=== PATIENT | female | born 1985 | race African-American/Black ===

== ENCOUNTER 2017-08-28 05:44 | Day surgery (SDC) | payer MEDICAID, SELFPAY ==
[2017-08-28 06:08] VITALS: BP 118/84; PULSE 78; RESP 18; TEMP 36.6; O2SAT 96; BMI 39.6
[2017-08-28 06:28] LABS: Internal QC Validated? YES +Cl - CLEAR BKGD; Pregnancy, Urine Negative Negative
--- NOTE | 2017-08-28 07:11 | PCM.OPRPT ---
Problem List (1) Gastro-esophageal reflux disease without esophagitis Status: Acute Report of Operation Date of Procedure: 08/28/17 Pre-Operative Diagnosis: k21.9 gastroesophageal reflux disease without esophagitis Post-Operative Diagnosis: Same Surgery/Procedure Performed:: Esophagogastroduodenoscopy with placement of 48 hour pH probe Type of Anesthesia:: MAC Anesthesiologist: Rex Copeland Description of Procedure: Patient was brought into the endoscopy suite. Back of her throat was sprayed with Cetacaine spray. A bite-block was placed. She was placed on the left lateral decubitus position. She was given graded anesthesia. The scope was inserted into the back of the oropharynx and directed down through the esophagus into the stomach and into the duodenum without difficulty. Operative findings: #1 duodenum: Normal appearance no mass lesions no ulcerations #2 stomach: Normal appearance no mass lesions no ulcerations. 3. Esophagus: Normal appearance no mass lesions no signs of esophagitis Z line was at 39 cm and was normal in appearance. The scope was withdrawn. PH probe was marked at 33 cm. The probe was then placed in the back of the oropharynx and directed down to the 33 cm julian. Suction was applied to the pH probe. It was deployed appropriately. The scope was reinserted in the back of the oropharynx and directed down through the esophagus. PH probe was identified and photograph was obtained. The scope was withdrawn and the patient tolerated the procedure well. - Admit VTE Documentation VTE Present on Admission: No VTE Mechan Device Prophylaxis: None VTE Pharm Prophylaxis ordered?: No Reason prophylaxis not ordered:: Treatment Not Indicated
[2017-08-28 07:15] VITALS: BP 105/58; BP 118/84; PULSE 71; RESP 18; TEMP 36.6; O2SAT 96
[2017-08-28 07:20] VITALS: BP 113/61; BP 118/84; PULSE 69; RESP 16; O2SAT 96
[2017-08-28 07:25] VITALS: BP 106/54; BP 118/84; PULSE 70; RESP 18; O2SAT 96
[2017-08-28 07:31] VITALS: BP 109/70; BP 118/84; PULSE 67; RESP 18; TEMP 36.8; O2SAT 96
[2017-08-28 08:07] VITALS: BP 118/84
== END 2017-08-28 08:10 | disposition home or self-care (01) ==
LOC: EN 05:47 → AC 05:48
PROVIDERS: Anesthesiology; Family Provider Internal Medicine; PCP Internal Medicine; Visit Provider Surgery
PROC: (CPT 43235; principal; 2017-08-28 06:30)
DX: K21.9 Gastro-esophageal reflux disease without esophagitis (principal); J45.909 Unspecified asthma, uncomplicated; G43.909 Migraine, unspecified, not intractable, without status migrainosus; K44.9 Diaphragmatic hernia without obstruction or gangrene; F32.9 Major depressive disorder, single episode, unspecified; F41.9 Anxiety disorder, unspecified; E66.9 Obesity, unspecified; Z68.39 Body mass index [BMI] 39.0-39.9, adult; Z79.51 Long term (current) use of inhaled steroids; Z79.899 Other long term (current) drug therapy
CPT/HCPCS: 43235; 91035; 81025; J7120

== ENCOUNTER 2017-09-12 12:33 | Emergency (ER) | payer MEDICAID, SELFPAY ==
[2017-09-12 12:34] VITALS: BP 125/71; PULSE 67; PULSE 69; RESP 15; RESP 18; TEMP 36.5; O2SAT 98; BMI 39.2
--- NOTE | 2017-09-12 12:58 | US_ITS ---
STUDY: ABDOMINAL ULTRASOUND - RIGHT UPPER QUADRANT REASON FOR VISIT: Female, 32 years old. Right upper quadrant pain. TECHNIQUE: Ultrasound evaluation of the right upper quadrant was performed with real-time and static cole-scale imaging. TECHNICAL QUALITY: Adequate. COMPARISON: None. FINDINGS: Liver: The liver measures 13.8 cm. There is increased echogenicity consistent with fatty infiltration. The bile ducts are within normal limits. There is hepatic color flow. The direction of portal flow is hepatopetal. There is no demonstrated mass lesion. Gallbladder: Normal distended gallbladder. The gallbladder wall measures 2.0 mm. There is a negative sonographic Keyes's sign. There is no pericholecystic fluid. There are no gallstones. Common Bile Duct (C.B.D.): The common bile duct measures 1.5-2.2 mm. Pancreas: Normal size of the head, body and tail of the pancreas. There is normal echogenicity of the pancreas. There is no demonstrated pancreatic mass or cyst. Right Kidney: Normal size of the right kidney. The right kidney measures 2.7 x 5.7 x 5.6 cm. There is a 5.4 mm maximum dimension echogenic focus without shadowing within the superficial lower pole cortex. The right cortex measures 2.0 cm. There is no demonstrated renal mass or cyst. There is no right hydronephrosis. US/Gallbladder IMPRESSION: Diffuse increased hepatic echogenicity without visualized mass or cyst. This is a nonspecific finding, however most often due to fatty infiltration. Unremarkable gallbladder and bile ducts and pancreas. Right renal nephrolithiasis versus nephrocalcinosis versus vascular calcification. Electronically Signed: Kian Aguirre MD at 14:09 EDT , Service support ,
[2017-09-12 13:12] LABS: Mucous, Urine 0 SEEN /hpf (<or=2+); Red Blood Cells-Urine 0 SEEN /hpf (0-5)
[2017-09-12 13:16] LABS: Color, Urine Yellow (Yellow); Glucose, Dipstick Normal (Normal); Ketone-Dipstick Negative (Negative); Leukocyte Esterase-Dipstick 25 /ul (Negative); Nitrite-Dipstick Negative (Negative); Occult Blood-Urine Negative /ul (Negative); Protein-Dipstick Negative (Negative); Specific Gravity, Urine 1.015 (1.002-1.030); Urine Bilirubin Dipstick Negative (Negative); Urine Clarity Sl. Cloudy (Clear); Urine Urobilinogen Normal (Normal); Urine pH 6.5 (5.0 - 8.0)
[2017-09-12] MEDS: Ondansetron 4 MG/2 ML Vial IV (13:26)
[2017-09-12] MEDS: Morphine 4 MG/ML Syringe IV (13:26)
[2017-09-12 13:31] LABS: Bacteria 1+ /hpf (None Seen); Squamous Epithelial Cells - UA 0-5 SEEN /hpf (5-10); White Blood Cells 0-5 SEEN /hpf (0-5)
[2017-09-12 13:36] LABS: Absolute Lymphocyte Count 1.94 X10^3/ul (0.83-4.51); Absolute Neutrophil Count 3.7 X10^3/uL (2.0-7.7); Basophil# 0.01 X10^3/uL; Basophil% 0.2 % (0-1); Eosinophil# 0.06 X10^3/uL; Hematocrit 44.2 % (37-47); Hemoglobin 14.2 g/dl (12.0-15.0); Lymphocyte # 1.94 X10^3/ul (4.0); Lymphocyte % 31.1 % (19-41); Mean Corp Hgb Conc 32.1 g/gl (32-36); Mean Corpuscular Hgb 28.3 pg (27.0-32.0); Mean Corpuscular Volume 88.2 fL (81-99); Mean Platelet Vol. 9.7 fl (6.2-12.0); Monocyte# 0.46 X10^3/uL; Monocyte% 7.4 % (0-10); Neutrophil # 3.74 X10^3/uL (2.7-7.7); Platelet Count 227 K/mm3 (150-450); RBC Distribution Width CV 13.7 % (11.6-14.6); RBC Distribution Width SD 43.8 fl (35.1-43.9); Red Blood Count 5.01 M/mm3 (4.2-5.4); White Blood Count 6.2 K/mm3 (4.4-11.0)
[2017-09-12 13:49] LABS: POSITIVE COUNT NO; POSITIVE DIFFERENTIAL NO; POSITIVE MORPHOLOGY NO
[2017-09-12 13:56] LABS: AST(SGOT) 13 U/L (15-37); Alanine Aminotransfer ALT/SGPT 16 U/L (13-56); Albumin, Serum 3.7 g/dL (3.2-5.0); Alkaline Phosphatase 103 U/L (45-117); Anion Gap 8 (5-15); BUN 13 mg/dL (7-18); BUN/Creat Ratio 19.9 RATIO (10-20); Chloride 105 mmol/L (98-107); Creatinine, Serum 0.65 mg/dL (0.55-1.02); EST Glomerular Filtration Rate 110 mL/min (>60); Est Glom Filt Rate - Afr Amer 134 mL/min (>60); Estimated Creatinine Clearance 100.88 ml/min; Globulin 4.1 g/dL (2.2-4.2); Glucose 77 mg/dL (74-106); Lipase 128 U/L (73-393); Potassium 4.1 mmol/L (3.5-5.1); Protein, Total 7.8 g/dL (6.4-8.2); Sodium Level 139 mmol/L (136-145)
[2017-09-12 13:57] LABS: Pregnancy, Serum, hCG Quali. NEGATIVE Negative (0-9 Nonpreg)
--- NOTE | 2017-09-12 14:29 | CT_ITS ---
STUDY: CT ABDOMEN AND PELVIS WITHOUT CONTRAST REASON FOR EXAM: Female, 32 years old. Right upper quadrant pain since this morning. RADIATION DOSAGE (If Supplied By Facility): CTDIvol = ( 20.34 ) mGy, DLP = ( 980.79 ) mGycm TECHNIQUE: Transaxial images were obtained from the dome of the diaphragm to the symphysis pubis without oral contrast, and without intravenous contrast. Sagittal and coronal images were reconstructed. Individualized dose optimization techniques were used for this CT. COMPARISON: March 26, 2015. FINDINGS: The visualized lung bases are remarkable only for calcified granulomas within the inferior right middle lobe and left lower lobe. The visualized portions of the heart are within normal limits. There is mild diffuse decreased hepatic attenuation consistent with fatty infiltration. There is no focal/discrete hepatic mass or cyst. Normal gallbladder and extrahepatic biliary system. There are some punctate calcifications throughout the splenic parenchyma consistent with sequela of infection with a prior systemic granulomatous disease. Normal pancreas. Normal bilateral adrenal glands. Normal right kidney. Normal left kidney. Of note, the echogenic finding within the lower pole of the right kidney seen on today's sonography is not demonstrated on this CT exam. Normal visualized stomach. Normal small intestine. Normal colon. The appendix is visualized and appears normal on sequence 2, image 104. Normal abdominal aorta. Normal inferior vena cava. Normal retroperitoneum. Normal urinary bladder. There is fatty only periumbilical hernia. Normal osseous structures. CT/Abdomen/Pelvis without Cont IMPRESSION: Mild hepatic steatosis. Punctate splenic parenchymal calcifications consistent with sequela of infection with a prior systemic granulomatous disease. Lung base small calcified parenchymal granulomas. Calcified pelvic phleboliths. Electronically Signed: Kian Aguirre MD at 15:26 EDT , Service support ,
[2017-09-12 15:17] VITALS: BP 131/75; PULSE 61; RESP 15; O2SAT 98
--- NOTE | 2017-09-12 15:31 | ED.DCSUM_ITS ---
- ER Visit Summary Date of Service: 09/12/17 Chief Complaint: Abdominal pain History of Present Illness: The patient is a 32 F presenting with right upper quadrant abdominal pain. States this started earlier today. She has pain in the mid abdomen and right upper quadrant. She denies nausea or vomiting. She has mild diarrhea. Denies fever. Denies urinary complaints. She states she tried Tylenol at home. She states pain is worsened when she moves. She denies injury. Denies other complaints. Physical Examination: Vitals are stable. Patient is afebrile. Alert no acute distress. HEENT exam is unremarkable. Neck is supple. Lungs are clear and equal bilaterally. Heart is regular rate and rhythm. Abdomen is soft nontender nondistended. Extremities are unremarkable. Skin is warm and dry. No focal neurologic deficit. Remainder of exam is unremarkable. Emergency Department Course and Treatment: Patient is given morphine, Zofran IV. CBC, chemistries unremarkable. Liver lipase are normal. Urinalysis unremarkable. HCG negative. Ultrasound of the gallbladder shows diffuse increased hepatic echogenicity without visualized mass or cyst. This is a nonspecific finding, however most often due to fatty infiltration. Unremarkable gallbladder and bile ducts and pancreas. Right renal nephrolithiasis versus nephrocalcinosis versus vascular calcification. CT abdomen pelvis shows mild hepatic steatosis. Punctate splenic parenchymal calcifications consistent with sequela of infection with a prior systemic granulomatous disease. Lung base small calcified parenchymal granulomas. Calcified pelvic phleboliths. Patient has some improvement of her pain. She was advised gallbladder and CT results. She is advised to follow-up with her primary care physician. She is given a prescription for Bentyl. Advised return to ED for worsening complaints. Disposition: Discharge home Impression: Abdominal pain This note was generated with [employer] dictation software. It may contain incorrect words, spelling, and punctuation that were not noted in review of the chart prior to signing ED Disposition - Plan for ED Patient: Chief Complaint: Abd Pain Referrals: Liz Fenton MD [Primary Care Provider] -
--- NOTE | 2017-09-12 15:42 | ED.DEP ---
ED Disposition - Plan for ED Patient: Chief Complaint: Abd Pain Instructions: ED Abdominal Pain Unkn Cause Prescriptions: Dicyclomine HCl [Bentyl] 20 mg PO TIDAC #20 capsule Referrals: Liz Fenton MD [Primary Care Provider] -
[2017-09-12 15:44] VITALS: BP 129/74; PULSE 62; RESP 15; O2SAT 98
== END 2017-09-12 15:50 | disposition home or self-care (01) ==
PROVIDERS: Emergency Provider Emergency Medicine; Family Provider Internal Medicine; PCP Internal Medicine
DX: R10.11 Right upper quadrant pain (principal)
CPT/HCPCS: 74176; 76705; 80048; 80076; 81001; 83690; 84703; 85025; 96374; 96375; 99283; A4216; J2405

== ENCOUNTER → 2017-10-24 09:42 | Day surgery (SDC) | payer MEDICAID, SELFPAY ==
[2017-10-03 12:09] VITALS: BP 119/70; PULSE 67; RESP 18; TEMP 36.8; O2SAT 97
--- NOTE | 2017-10-03 12:45 | NURSING ---
ATTEMPTED TO PERFORM ESPOPHAGEAL MANOMETRY, UNABLE TO COMPLETE AT THIS TIME. ATTEMPTED TO PASS CATHETER X1 EACH NARE, WITHOUT SUCCESS. PT HAD PROFUSE VOMITING WITH BOTH ATTEMPTS AND ELECTED TO STOP. COMFORT MEASURES GIVEN (COOL WASH CLOTH, CLEAN CLOTHING, TIME TO REST, ETC.) DR. MITCHELL'S OFFICE NOTIFIED. MANOMETRY CLINICAL REP CALLED WITHOUT ANSWER. PT DISCHARGED HOME.
--- NOTE | 2017-10-24 09:42 | DT_ITS ---
This patient was seen during an EMR downtime October 23, 2017 - October 30, 2017. This patient may have a combination of paper and electronic documentation or all paper documentation. All documentation is viewable within the e-chart portion of [facility] for each patient visit.
== END ==
PROVIDERS: Family Provider Internal Medicine; PCP Internal Medicine; Visit Provider Surgery
PROC: F00ZJWZ Instrumental Swallowing and Oral Function Assessment using Swallowing Equipment (ICD-10-PCS; CPT 43235; principal; 2017-10-03 11:55)
DX: K21.9 Gastro-esophageal reflux disease without esophagitis (principal)
CPT/HCPCS: 91010

== ENCOUNTER → 2017-12-11 11:56 | Outpatient (CLI) | payer MEDICAID, SELFPAY ==
--- NOTE | 2017-12-11 11:58 | NM_ITS ---
CLINICAL: 32-year-old female with reported history of abdominal pain. SEMI-SOLID PHASE 99m Tc SULFUR COLLOID GASTRIC EMPTYING STUDY COMPARISON: CT of the abdomen-pelvis report 09/12/2017 FINDINGS: The patient was administered 1.0 mCi of 99m Tc sulfur colloid mixed with oatmeal and consumed per os. Image acquisitions in the anterior-posterior projections for a total of 60 minutes. There is prompt visualization of the stomach. There is no gastroesophageal reflux identified. The T1/2 linear fit was calculated to be 29.46 minutes, (Normal: 12-56 minutes). NM/Gastric Emptying Study IMPRESSION: 1. NORMAL 99m Tc sulfur colloid semi-solid phase (oatmeal) gastric emptying imaging examination. A. There is normal and preserved semi-solid phase gastric emptying compared to normal controls. (Marguerite et al, J Nucl Med Tech 38: 186, 2010). Electronically Signed: Rex Mcknight DO at 20:24 EDT Tel , Service support ,
== END ==
PROVIDERS: Family Provider Internal Medicine; PCP Internal Medicine; Visit Provider Surgery
DX: R10.9 Unspecified abdominal pain (principal)
CPT/HCPCS: 78264; A9541

== ENCOUNTER → 2018-03-30 12:42 | Outpatient (CLI) | payer MEDICAID, SELFPAY | PROVIDERS: Family Provider Internal Medicine; PCP Internal Medicine; Visit Provider Surgery | DX: Z53.9 Procedure and treatment not carried out, unspecified reason (principal) ==

== ENCOUNTER 2020-05-27 15:47 | Emergency (ER) | payer MEDICAID, SELFPAY ==
[2020-05-27 15:47] VITALS: BP 124/85; PULSE 102; PULSE 107; RESP 22; TEMP 35.6; O2SAT 96; O2SAT 97; BMI 41.2
--- NOTE | 2020-05-27 16:02 | CT_ITS ---
STUDY: CT ABDOMEN AND PELVIS WITHOUT CONTRAST REASON FOR EXAM: Female, 34 years old. LEFT FLANK/PELVIC PAIN RADIATION DOSAGE (If Supplied By Facility): CTDIvol = ( 17.41 ) mGy, DLP = ( 1009.08 ) mGycm TECHNIQUE: Transaxial images were obtained from the dome of the diaphragm to the symphysis pubis without oral contrast, and without intravenous contrast. Sagittal and coronal images were reconstructed. Individualized dose optimization techniques were used for this CT. COMPARISON: 09/12/2017. FINDINGS: The visualized lung bases are unremarkable. The visualized portions of the heart are within normal limits. Normal liver. Normal gallbladder and extrahepatic biliary system. Normal spleen. Normal pancreas. Normal bilateral adrenal glands. Normal right kidney. Normal left kidney. Normal visualized stomach. Normal small intestine. Normal colon. The appendix is visualized and appears normal. Normal abdominal aorta. Normal inferior vena cava. Normal retroperitoneum. Normal urinary bladder. Normal abdominal wall. Normal osseous structures. No significant change since prior exam CT/Abdomen/Pelvis without Cont IMPRESSION: Normal unenhanced CT of the abdomen and pelvis. Electronically Signed: Rudy Roegrs MD at 18:42 EST , Service support ,
--- NOTE | 2020-05-27 16:04 | ED.DCSUM_ITS ---
History of Present Illness Chief Complaint: Back Informant: Patient - Abdominal Pain/Flank Pain Onset: Hours - 1.5 Context: Sudden Onset Timing: Continuous Quality: Aching - colicky Location: Left Flank Current Severity: Severe Maximum Severity: Severe Worsened by: Nothing Relieved by: Nothing - Nausea/Vomiting/Emesis GI Symptom: Negative for: Nausea, Vomiting - Diarrhea/Melena/Hematochezia GI Symptom: Diarrhea. Negative for: Melena, Hematochezia Onset: Today Stool Quality: Loose Episodes: 1 Associated Symptoms: Negative for: Dysuria, Frequency, Hematuria, Urgency - Past Medical History (1) Anxiety Status: Chronic (2) Asthma Status: Chronic (3) Carpal tunnel syndrome Status: Chronic (4) GERD (gastroesophageal reflux disease) Status: Chronic (5) Migraine Status: Chronic (6) Depression Status: Chronic Past Medical History - Allergies and Home Meds Allergies/Adverse Reactions: Allergies No Known Allergies Allergy (Verified 03/30/18 10:36) Primary Care Physician: Liz Fenton MD [Primary Care Provider] - Smoking Status: Never smoker - Family History Maternal Family History: Family History (Last Reviewed 03/30/18 @ 10:19 by Ella Blackmon) Mother Asthma Diabetes Father Cancer Brother Hypertension Family History: Reports: - - Fibromyalgia Review of Systems General: Denies: Chills, Fever, Sweats Eyes: Denies: Visual changes - bilaterally, Diplopia ENT: Denies: Rhinorrhea, Sore throat Cardiovascular: Denies: Chest pain, Palpitations Respiratory: Denies: Dyspnea, Cough, Dyspnea on exertion Gastrointestinal: Reports: Abdominal pain. Denies: Nausea, Vomiting, Diarrhea, Melena, Hematochezia Genitourinary: Denies: Dysuria, Hematuria, Frequency Musculoskeletal: Reports: Back pain. Denies: Swelling, Extremity Pain Skin: Denies: Rash, Wounds Neurological: Denies: Headache, Weakness, Numbness Physical Exam Vital Signs/Narrative: Vital Signs Temp Pulse Resp BP Pulse Ox 05/27/20 15:47 96.0 F L 107 H 22 H 124/85 H 97 Inital Vital Signs reviewed: Yes General: Well nourished, Well developed, Obese, Acute Distress - painful Head: Normocephalic, Atraumatic Eyes: Perrl, EOMI ENT: Moist mucous membranes, No rhinorrhea Neck: Supple, Nontender Cardiovascular: Regular rate, Regular rhythm, No murmurs Respiratory: No distress, CTA bilaterally, Chest nontender Abdomen: Soft, Nondistended, Normal bowel sounds, Tender. Negative for: Guarding, Rebound tenderness, Pulsatile mass Back: Nontender, Normal Inspection. Negative for: CVA tenderness Extremities: Nontender, No edema Skin: Normal color, No rash, No Trauma Neurological: Alert, Oriented x3, Cranial nerves II-XII grossly intact, Normal Strength, Normal Sensation Psychological: Normal affect, Normal Mood Diagnostic/Tx/Re-eval Impressions Abdomen/Pelvis CT 05/27/20 16:02 IMPRESSION: Normal unenhanced CT of the abdomen and pelvis. Electronically Signed: Rudy Rogers MD at 18:42 EST , Service support , Transvaginal US 05/27/20 17:55 IMPRESSION: Small cyst in the left ovary with mild fluid in the cul-de-sac likely due to recent ovulation Electronically Signed: Rudy Rogers MD at 20:24 EST , Service support , 05/27/20 16:02 Abdomen/Pelvis without Cont [CT] Stat 05/27/20 17:55 Transvaginal Non- [US] Stat Laboratory Results 05/27/20 05/27/20 05/27/20 16:15 16:15 16:15 WBC 6.7 RBC 5.12 Hgb 14.3 Hct 44.5 MCV 86.9 MCH 27.9 MCHC 32.1 RDW Std Deviation 42.2 RDW Coeff of Juanita 13.3 Plt Count 231 MPV 9.8 Immature Gran % (Auto) 0.300 Neut % (Auto) 61.7 Lymph % (Auto) 28.7 [place] % (Auto) 8.1 Eos % (Auto) 0.9 Baso % (Auto) 0.3 Absolute Neuts (auto) 4.1 Absolute Lymphs (auto) 1.91 Nucleated RBC % 0 Sodium 138 Potassium 4.0 Chloride 108 H Carbon Dioxide 25.0 Anion Gap 5 BUN 10 Creatinine 0.84 Estim Creat Clear Calc 76.59 Est GFR (MDRD) Af Amer 99 Est GFR (MDRD) Non-Af 82 BUN/Creatinine Ratio 11.9 Glucose 102 Calcium 9.0 Serum , Qual NEGATIVE Urine Color Urine Clarity Urine pH Ur Specific [place] Urine Protein Urine Glucose (UA) Urine Ketones Urine Occult Blood Urine Nitrite Urine Bilirubin Urine Urobilinogen Ur Leukocyte Esterase Urine RBC Urine WBC Ur Squamous Epith Cells Urine Bacteria Urine Mucus 05/27/20 17:15 WBC RBC Hgb Hct MCV MCH MCHC RDW Std Deviation RDW Coeff of Juanita Plt Count MPV Immature Gran % (Auto) Neut % (Auto) Lymph % (Auto) [place] % (Auto) Eos % (Auto) Baso % (Auto) Absolute Neuts (auto) Absolute Lymphs (auto) Nucleated RBC % Sodium Potassium Chloride Carbon Dioxide Anion Gap BUN Creatinine Estim Creat Clear Calc Est GFR (MDRD) Af Amer Est GFR (MDRD) Non-Af BUN/Creatinine Ratio Glucose Calcium Serum , Qual Urine Color Yellow Urine Clarity Sl. Cloudy Urine pH 6.0 Ur Specific [place] 1.025 Urine Protein Negative Urine Glucose (UA) Normal Urine Ketones Negative Urine Occult Blood Negative Urine Nitrite Negative Urine Bilirubin Negative Urine Urobilinogen 1 H Ur Leukocyte Esterase 500 H Urine RBC 0 SEEN Urine WBC 0-5 SEEN Ur Squamous Epith Cells 10-25 SEEN Urine Bacteria RARE Urine Mucus 0 SEEN - Medical Decision Making Initially the patient presented more like a kidney stone with sudden onset of left flank pain that went high into her left upper flank and back. CT was obtained in addition to labs since her exam was a little atypical, CT is normal and the labs do not show anything concerning, with the exception of her urine showing a confusing and likely contaminated specimen result of leukocyte esterase 500 but without pyuria and rare bacteria, along with 10-25 epithelial cells. This was sent for culture, but since she does not have urinary symptoms, I do not think she needs antibiotics to cover that. Given her ongoing pain which we did help significantly with morphine and Toradol, and the fact that she has a left ovarian cyst that she states her [employer] recently found because she was having heavy irregular menstrual cycles, a transvaginal ultrasound was obtained to ensure she does not have acute torsion. Good blood flow was seen to both ovaries. She does have a cyst on the left that is small, as well as free fluid in the cul-de-sac, differential includes ovulation, ruptured ovarian cyst, endometriosis, and other potential [employer] related causes. At this time I think she is safe to be discharged home. Her was negative so this is not likely an ectopic , and I think prescribing her a short course of pain medicine with close outpatient gynecologic follow-up would be reasonable. ED Disposition - Plan for ED Patient: Disposition: Home or Assisted Living Diagnosis: Acute pain in female pelvis, Left ovarian cyst Instructions: ED Ovarian Cyst Prescriptions: Hydrocodone Bitart/Apap 5-325 [[place] 5MG-325MG] 1 tab PO Q4H PRN PRN 3 Days #14 tab PRN Reason: Pain Prescription Printed Referrals: Liz Fenton MD [Primary Care Provider] - 3-5 Days if not improving (And/or your)
[2020-05-27 16:21] LABS: Absolute Lymphocyte Count 1.91 X10^3/uL (0.83-4.51); Absolute Neutrophil Count 4.1 X10^3/uL (2.0-7.7); Basophil# 0.02 X10^3/uL; Basophil% 0.3 % (0-1); Eosinophil# 0.06 X10^3/uL; Eosinophils% 0.9 % (0-5); Hematocrit 44.5 % (37-47); Hemoglobin 14.3 g/dL (12.0-15.0); Lymphocyte # 1.91 X10^3/ul (4.0); Lymphocyte % 28.7 % (19-41); Mean Corp Hgb Conc 32.1 g/dL (32-36); Mean Corpuscular Hgb 27.9 pg (27.0-32.0); Mean Corpuscular Volume 86.9 fL (81-99); Mean Platelet Vol. 9.8 fl (6.2-12.0); Monocyte# 0.54 X10^3/uL; Monocyte% 8.1 % (0-10); NRBC Flagged by Analyzer 0 % (0-5); Neutrophil % 61.7 % (47-70); Platelet Count 231 K/mm3 (150-450); RBC Distribution Width CV 13.3 % (11.6-14.6); RBC Distribution Width SD 42.2 fl (35.1-43.9); Red Blood Count 5.12 M/mm3 (4.2-5.4); White Blood Count 6.7 K/mm3 (4.4-11.0)
[2020-05-27] MEDS: Ketorolac 30 MG/ML Syringe IV (16:23)
[2020-05-27] MEDS: Morphine 4 MG/ML Syringe IV ×2 (16:23→20:44)
[2020-05-27 16:34] LABS: Anion Gap 5 (5-15); BUN 10 mg/dL (7-18); BUN/Creat Ratio 11.9 RATIO (10-20); Chloride 108 mmol/L (98-107); Creatinine, Serum 0.84 mg/dL (0.55-1.02); EST Glomerular Filtration Rate 82 mL/min (>60); Est Glom Filt Rate - Afr Amer 99 mL/min (>60); Estimated Creatinine Clearance 76.59 ml/min; Glucose 102 mg/dL (74-106); Sodium Level 138 mmol/L (136-145)
[2020-05-27 16:45] LABS: Internal QC Validated? YES +Cl - CLEAR BKGD; Pregnancy, Serum, hCG Quali. NEGATIVE Negative
[2020-05-27 17:29] LABS: Mucous, Urine 0 SEEN /hpf (<or=2+); Red Blood Cells-Urine 0 SEEN /hpf (0-5)
[2020-05-27 17:36] LABS: Color, Urine Yellow (Yellow); Glucose, Dipstick Normal (Normal); Ketone-Dipstick Negative (Negative); Leukocyte Esterase-Dipstick 500 /ul (Negative); Nitrite-Dipstick Negative (Negative); Occult Blood-Urine Negative /ul (Negative); Protein-Dipstick Negative (Negative); Specific Gravity, Urine 1.025 (1.002-1.030); Urine Bilirubin Dipstick Negative (Negative); Urine Clarity Sl. Cloudy (Clear); Urine Urobilinogen 1 mg/dl (Normal)
[2020-05-27 17:42] LABS: Squamous Epithelial Cells - UA 10-25 SEEN /hpf (5-10); White Blood Cells 0-5 SEEN /hpf (0-5)
[2020-05-27 17:43] LABS: Bacteria RARE /hpf (None Seen)
--- NOTE | 2020-05-27 17:55 | US_ITS ---
STUDY: ULTRASOUND TRANSVAGINAL CLINICAL: Female, 34 years old. SEVERE PELVIC PAIN TECHNIQUE: Transvaginal COMPARISON: None. FINDINGS: Normal uterine size measuring 8.2 x 4.4 x 3.7 cm in maximal craniocaudal dimension. There are no myometrial masses. Normal endometrial thickness measuring 12 mm. There are no endometrial masses, and there is no fluid in the endometrial cavity. Normal uterine cervix. Normal right ovary, measuring 2 x 1.8 x 1.7 cm. There are multiple follicles without a dominant cyst. Normal left ovary, measuring 3.7 x 2.3 x 2 cm. There is a cyst measuring 1.9 x 1.5 x 1.4 cm There is mild free fluid in the pelvis. US/Transvaginal Non- IMPRESSION: Small cyst in the left ovary with mild fluid in the cul-de-sac likely due to recent ovulation Electronically Signed: Rudy Rogers MD at 20:24 EST , Service support ,
[2020-05-27 20:46] VITALS: PULSE 69; RESP 16; O2SAT 96
[2020-05-27 20:47] VITALS: BP 122/70
== END 2020-05-27 21:30 | disposition home or self-care (01) ==
PROVIDERS: Emergency Provider Emergency Medicine; PCP Internal Medicine
DX: N83.202 Unspecified ovarian cyst, left side (principal); J45.909 Unspecified asthma, uncomplicated; K21.9 Gastro-esophageal reflux disease without esophagitis; E66.9 Obesity, unspecified
CPT/HCPCS: 74176; 76830; 80048; 81001; 84703; 85025; 87086; 87088; 93976; 96374; 96375; 96376; 99283; J7030; A4216

== ENCOUNTER 2021-05-28 10:30 | Outpatient (CLI) | payer MEDICAID, SELFPAY | END 2021-05-28 23:59 | disposition short-term general hospital (02) | LOC: LABSPEC 10:31 | PROVIDERS: PCP Internal Medicine; Referring Provider Physician Assistant Surgical; Visit Provider Physician Assistant Surgical | DX: U07.1 COVID-19 (principal) | CPT/HCPCS: 87635; U0003 ==

== ENCOUNTER 2021-09-24 14:35 | Emergency (ER) | payer MEDICAID, SELFPAY ==
[2021-09-24 14:36] VITALS: BP 129/100; PULSE 94; RESP 16; TEMP 36.2; O2SAT 96; BMI 40.7
[2021-09-24 14:38] VITALS: BP 129/100; PULSE 94; RESP 16; TEMP 36.2; O2SAT 96
[2021-09-24] MEDS: Ondansetron 4 MG/2 ML Vial IV (15:37)
[2021-09-24] MEDS: Mag Hydrox/Al Hydrox/Simeth 30 ML UDC PO (15:37)
[2021-09-24] MEDS: Dicyclomine 10 MG Capsule 20 MG PO (15:37)
--- NOTE | 2021-09-24 16:02 | EDS_ITS ---
HPI History of Present Illness Chief Complaint: Abd Pain Narrative Narrative: 36-year-old female with history of GERD and chronic abdominal issues presenting with nausea/vomiting, increased acid reflux, abdominal cramping and bloating associated with diarrhea. She states this is ongoing for about a month. She denies any black or bloody stool. She has no constipation. No fever or chills. No recent antibiotics use. She states he spoke with her primary care provider who referred her to a GI doctor who she will see in October. She has had upper endoscopy and lower endoscopy previously. Patient states she has Zofran at home which does help. She states has been drinking a lot of o range juice lately. She also states she had tomato soup yesterday with a grilled cheese. [facility] Medical History Acute bronchitis, unspecified Acute otitis media, left Anxiety Asthma Carpal tunnel syndrome Depression Encounter for screening for COVID-19 GERD (gastroesophageal reflux disease) Lab test negative for COVID-19 virus Migraine Obesity Home Medications sertraline 100 mg PO DAILY 03/26/15 [History Last Taken 09/25/16] budesonide-formoterol 2 puff INHALATION BID 01/20/16 [History Last Taken 09/25/16] sumatriptan succinate 100 mg PO .X1 PRN 09/26/16 [History Last Taken 09/24/16] albuterol sulfate 2 puff IH Q6H PRN PRN 04/03/17 [History Last Taken Unknown] pantoprazole 40 mg tablet,delayed release 40 mg PO QDAY 08/10/17 [History Last Taken 08/22/17] [id number] acid 1 ea PO DAILY 08/22/17 [History Last Taken Unknown] dicyclomine 20 mg PO TIDAC #20 cap 09/12/17 [Rx Last Taken Unknown] bupropion HCl 100 mg tablet,12 hr sustained-release 100 mg PO DAILY 11/26/20 [History Last Taken Unknown] dicyclomine 10 mg PO TID PRN #20 cap 09/24/21 [Rx Last Taken Unknown] promethazine 25 mg PO TID PRN #20 tab 09/24/21 [Rx Last Taken Unknown] promethazine 25 mg ND Q6H PRN #12 ea 09/24/21 [Rx Last Taken Unknown] sucralfate [Carafate] 1 g PO BID PRN #400 ml 09/24/21 [Rx Last Taken Unknown] Allergy/AdvReac Type Severity Reaction Status Date / Time No Known Allergies Allergy Verified 09/24/21 14:38 Family History Mother Asthma Diabetes Father Cancer throat Brother Hypertension Surgical History History of esophagogastroduodenoscopy (EGD) S/P carpal tunnel release S/P colonoscopy Social History Smoking Status: Never smoker ROS ROS ED Constitutional Constitutional ED: Denies chills or fever(s) Eyes Eyes: Denies blurry vision or diplopia ENT ENT ED: Denies rhinorrhea or sore throat Cardiovascular Cardiovascular: Denies chest pain or palpitations Respiratory/Chest Respiratory/Chest: Denies cough or dyspnea Gastrointestinal Gastrointestinal: Reports abdominal pain, diarrhea, nausea and vomiting Genitourinary Genitourinary ED: Denies dysuria or hematuria Musculoskeletal Musculoskeletal: Denies arthralgias or myalgias Integumentary Denies rash Neurologic Neurologic: Denies headache(s) Psychiatric Psychiatric: Denies anxiety or depression EXAM Physical Exam Const Vital Signs: 09/24/21 14:36 09/24/21 14:38 09/24/21 16:52 Temperature 97.1 F L 97.1 F L Temperature Source Temporal Temporal Pulse Rate 94 94 90 Respiratory Rate 16 16 18 Blood Pressure 129/100 H 129/100 H 128/84 H Blood Pressure Mean 109 109 98 Pulse Ox 96 96 96 Oxygen Delivery Method Room Air Room Air Room Air 09/24/21 17:05 Temperature 97.9 F Temperature Source Pulse Rate 63 Respiratory Rate 17 Blood Pressure 130/86 H Blood Pressure Mean Pulse Ox 97 Oxygen Delivery Method Positive well nourished General Appearance ED: NAD; Negative for pallor HEENT Reports moist mucous membranes Negative for trauma Eyes PERRL and EOMs intact bilaterally Resp normal respiratory effort and clear to auscultation bilaterally Cardio regular rate and regular rhythm GI normal to inspection, nondistended, normoactive bowel sounds Back/Spine no CVA tenderness Neuro oriented x3 and CN's II-XII intact bilaterally Sensorium / Orientation: alert and orientation impaired Motor Exam: strength 5/5 throughout Skin no rashes or lesions noted General Skin Exam: Negative for jaundice or pallor MDM MDM MDM Narrative Medical decision making narrative: After initially evaluating the patient I did not think she needed blood work however after getting Zofran and a GI cocktail she vomited. At this point I added on blood work and gave her IV Haldol, Pepcid. She was given Bentyl. On reevaluation she is feeling well. CBC and CMP within normal limits. Lipase negative. Patient will be discharged home with Phenergan, Carafate. She is on Protonix. I will also send her a prescription for Bentyl. Patient will follow up with GI. She can return precautions. Impression: 1. Nausea/vomiting 2. Diarrhea 3. History of GERD Lab Data Attestation: I reviewed the patient's lab results. Labs: Laboratory Results - last 24 hr 09/24/21 09/24/21 15:00 15:00 WBC 6.6 RBC 5.06 Hgb 13.9 Hct 43.9 MCV 86.8 MCH 27.5 MCHC 31.7 L RDW Std Deviation 42.5 RDW Coeff of Juanita 13.5 Plt Count 216 MPV 10.6 Immature Gran % (Auto) 0.500 Neut % (Auto) 58.2 Lymph % (Auto) 30.1 Haywood % (Auto) 9.8 Eos % (Auto) 1.1 Baso % (Auto) 0.3 Absolute Neuts (auto) 3.8 Absolute Lymphs (auto) 1.97 Nucleated RBC % 0 Sodium 139 Potassium 3.7 Chloride 107 Carbon Dioxide 25.0 Anion Gap 7 BUN 9 Creatinine 0.80 Estim Creat Clear Calc 78.87 Est GFR (MDRD) Af Amer 103 Est GFR (MDRD) Non-Af 85 BUN/Creatinine Ratio 11.2 Glucose 93 Calcium 8.6 Total Bilirubin 0.20 AST 13 L ALT 17 Alkaline Phosphatase 86 Total Protein 8.0 Albumin 3.4 Globulin 4.6 H Albumin/Globulin Ratio 0.7 L Lipase 113 Discharge Plan Triage Chief Complaint: Abd Pain ED Provider: Rex Acuna Dx/Rx/DC Orders Instructions: ED Abdominal Pain Unkn Cause Fem, ED Diarrhea, Unknown Cause, ED Vomiting (Adult) Prescriptions: New promethazine 25 mg suppository 25 mg ND Q6H PRN (Reason: nausea and vomiting) Qty: 12 RF: 0 promethazine 25 mg tablet 25 mg PO TID PRN (Reason: nausea and vomiting) Qty: 20 RF: 0 sucralfate [Carafate] 100 mg/mL suspension 1 g PO BID PRN (Reason: gerd) Qty: 400 RF: 0 dicyclomine 10 mg capsule 10 mg PO TID PRN (Reason: abdominal cramping) Qty: 20 RF: 0 No Action pantoprazole [Protonix] 40 mg tablet,delayed release (DR/EC) 40 mg PO QDAY RF: 0 bupropion HCl [Wellbutrin SR] 100 mg tablet sustained-release 12 hr 100 mg PO DAILY RF: 0 sertraline 25 MG tablet 100 mg PO DAILY RF: 0 budesonide-formoterol 1 INHALER inhaler 2 puff INHALATION BID RF: 0 sumatriptan succinate 100 MG tablet 100 mg PO .X1 PRN RF: 0 albuterol sulfate 18 GM HFA aerosol inhaler 2 puff IH Q6H PRN PRN (Reason: Sob &/Or Wheezing) RF: 0 [id number] 1 EACH tablet 1 ea PO DAILY RF: 0 dicyclomine 10 MG capsule 20 mg PO TIDAC Qty: 20 RF: 0 Primary Care Provider: Liz Fenton Referrals: Liz Fenton MD [Primary Care Provider] - Disposition Disposition: Home, Self Care Discharge Date/Time: 09/24/21 17:11
[2021-09-24 16:24] LABS: Absolute Lymphocyte Count 1.97 X10^3/uL (0.83-4.51); Absolute Neutrophil Count 3.8 X10^3/uL (2.0-7.7); Basophil# 0.02 X10^3/uL; Basophil% 0.3 % (0-1); Eosinophil# 0.07 X10^3/uL; Eosinophils% 1.1 % (0-5); Hematocrit 43.9 % (37-47); Hemoglobin 13.9 g/dL (12.0-15.0); Lymphocyte # 1.97 X10^3/ul (0.83-4.51); Lymphocyte % 30.1 % (19-41); Mean Corp Hgb Conc 31.7 g/dL (32-36); Mean Corpuscular Hgb 27.5 pg (27.0-32.0); Mean Corpuscular Volume 86.8 fL (81-99); Mean Platelet Vol. 10.6 fl (6.2-12.0); Monocyte# 0.64 X10^3/uL; Monocyte% 9.8 % (0-10); NRBC Flagged by Analyzer 0 % (0-5); Neutrophil # 3.82 X10^3/uL (2.7-7.7); Neutrophil % 58.2 % (47-70); Platelet Count 216 K/mm3 (150-450); RBC Distribution Width CV 13.5 % (11.6-14.6); RBC Distribution Width SD 42.5 fl (35.1-43.9); Red Blood Count 5.06 M/mm3 (4.2-5.4); White Blood Count 6.6 K/mm3 (4.4-11.0)
[2021-09-24] MEDS: Haloperidol Lactate 5 MG/ML Vial 2 MG IV (16:26)
[2021-09-24 16:42] LABS: ALB/GLOB Ratio 0.7 RATIO (0.9-2.4); AST(SGOT) 13 U/L (15-37); Alanine Aminotransfer ALT/SGPT 17 U/L (13-56); Albumin, Serum 3.4 g/dL (3.2-5.0); Alkaline Phosphatase 86 U/L (45-117); Anion Gap 7 (5-15); BUN 9 mg/dL (7-18); BUN/Creat Ratio 11.2 RATIO (10-20); Calcium,Total 8.6 mg/dL (8.5-10.1); Chloride 107 mmol/L (98-107); EST Glomerular Filtration Rate 85 mL/min (>60); Est Glom Filt Rate - Afr Amer 103 mL/min (>60); Estimated Creatinine Clearance 78.87 ml/min; Globulin 4.6 g/dL (2.2-4.2); Glucose 93 mg/dL (74-106); Lipase 113 U/L (73-393); Potassium 3.7 mmol/L (3.5-5.1); Sodium Level 139 mmol/L (136-145)
[2021-09-24] MEDS: Famotidine 20 MG Tablet PO (16:49)
[2021-09-24 16:52] VITALS: BP 128/84; PULSE 90; RESP 18; O2SAT 96
[2021-09-24 17:05] VITALS: BP 130/86; PULSE 63; RESP 17; TEMP 36.6; O2SAT 97
== END 2021-09-24 17:11 | disposition home or self-care (01) ==
PROVIDERS: Emergency Provider Student in an Organized Health Care Education/Training Program; PCP Internal Medicine; Visit Provider Student in an Organized Health Care Education/Training Program
DX: R10.9 Unspecified abdominal pain (principal); Z68.41 Body mass index [BMI] 40.0-44.9, adult; R11.2 Nausea with vomiting, unspecified; R19.7 Diarrhea, unspecified; K21.9 Gastro-esophageal reflux disease without esophagitis; E66.9 Obesity, unspecified; J45.909 Unspecified asthma, uncomplicated; F41.9 Anxiety disorder, unspecified; F32.A Depression, unspecified; Z79.899 Other long term (current) drug therapy
CPT/HCPCS: 80053; 83690; 85025; 96374; 96375; 99285; A4216; J2405

== ENCOUNTER 2022-05-22 18:32 | Emergency (ER) | payer MEDICAID, SELFPAY ==
[2022-05-22 18:33] VITALS: BP 135/93; PULSE 105; RESP 14; TEMP 36.6; O2SAT 96; BMI 42.4
--- NOTE | 2022-05-22 19:59 | EDS_ITS ---
HPI History of Present Illness Chief Complaint: Headache Informant: patient Onset/Context/Timing Onset: Weeks (2) Context: Gradual Timing: Continuous Quality -Headache: Positive for Sharp Location: Generalized Worsened by: Light Relieved by: Nothing Associated Symptoms/Injury Associated Symptoms: Positive for Nausea, Vomiting and Photophobia; Negative for Fever, Sore Throat, Sinus Pressure, Numbness, Tingling, Preceding Aura, Visual Changes, Blurred Vision or Visual Loss Injury - HOLDEN: Negative for Direct Trauma Narrative Narrative: Patient presents with a headache that has been constant for the past 2 weeks. Patient states the pain is constant. Patient describes her pain as sharp. Patient states her pain is diffuse across her head. Patient states it is worse with light. Patient states nothing makes it better. Patient admits to some nausea and vomiting. Patient denies any visual changes. Patient denies any scotoma or aura. Patient denies any sore throat or sinus pressure. Patient denies any history of migraine headaches. [facility] Medical History Acute bronchitis, unspecified Acute otitis media, left Anxiety Asthma Carpal tunnel syndrome Depression Encounter for screening for COVID-19 GERD (gastroesophageal reflux disease) Lab test negative for COVID-19 virus Migraine Obesity Home Medications sertraline 25 mg tablet 100 mg PO DAILY 03/26/15 [History Last Taken 09/25/16] budesonide-formoterol HFA 160 mcg-4.5 mcg/actuation aerosol inhaler 2 puff inhalation BID 01/20/16 [History Last Taken 09/25/16] sumatriptan succinate 100 mg tablet 100 mg PO .X1 PRN MIGRAINE 09/26/16 [History Last Taken 09/24/16] albuterol sulfate 90 mcg/actuation aerosol inhaler 2 puff IH Q6H PRN PRN Sob &/Or Wheezing 04/03/17 [History Last Taken Unknown] pantoprazole 40 mg tablet,delayed release (Protonix) 40 mg PO QDAY 08/10/17 [History Last Taken 08/22/17] vit 122-ferrous fumarate 27 mg iron-folic acid 800 mcg tablet 1 ea PO DAILY 08/22/17 [History Last Taken Unknown] dicyclomine 10 mg capsule 20 mg PO TIDAC #20 caps 09/12/17 [Rx Last Taken Unknown] bupropion HCl 100 mg tablet,12 hr sustained-release (Wellbutrin SR) 100 mg PO DAILY 11/26/20 [History Last Taken Unknown] dicyclomine 10 mg capsule 10 mg PO TID PRN abdominal cramping #20 caps 09/24/21 [Rx Last Taken Unknown] promethazine 25 mg rectal suppository 25 mg MI Q6H PRN nausea and vomiting #12 ea 09/24/21 [Rx Last Taken Unknown] promethazine 25 mg tablet 25 mg PO TID PRN nausea and vomiting #20 tabs 09/24/21 [Rx Last Taken Unknown] sucralfate 100 mg/mL oral suspension (Carafate) 1 g (10 mL) PO BID PRN gerd #400 mL 09/24/21 [Rx Last Taken Unknown] azithromycin 250 mg tablet See Rx Instructions PO .COMPLEX #6 tabs 04/07/22 [Rx Last Taken Unknown] Allergy/AdvReac Type Severity Reaction Status Date / Time No Known Allergies Allergy Verified 05/22/22 18:33 Family History Mother Asthma Diabetes Father Cancer throat Brother Hypertension Surgical History History of esophagogastroduodenoscopy (EGD) S/P carpal tunnel release S/P colonoscopy Social History Smoking Status: Never smoker ROS ROS ED Constitutional Constitutional ED: Denies chills or fever(s) Eyes Eyes: Denies blurry vision or change in vision ENT ENT ED: Denies rhinorrhea or sore throat Cardiovascular Cardiovascular: Denies chest pain or palpitations Respiratory/Chest Respiratory/Chest: Denies cough or dyspnea Gastrointestinal Gastrointestinal: Denies nausea or vomiting Genitourinary Genitourinary ED: Denies dysuria or hematuria Musculoskeletal Musculoskeletal: Denies back pain or neck pain Integumentary Denies abscess or rash Neurologic Neurologic: Reports headache(s); Denies weakness Allergic/Immunologic Allergic/Immunologic ED: Denies mouth swelling or urticaria EXAM Physical Exam Const Vital Signs: 05/22/22 18:33 05/22/22 20:32 Temperature 98 F Temperature Source Temporal Pulse Rate 105 H Respiratory Rate 14 16 Blood Pressure 135/93 H Blood Pressure Mean 107 Pulse Ox 96 Oxygen Delivery Method Room Air Positive well nourished and well developed General Appearance ED: well developed and NAD HEENT Reports moist mucous membranes atraumatic Neck supple and no JVD Resp normal respiratory effort and clear to auscultation bilaterally Cardio regular rate, regular rhythm and no murmurs GI normal to inspection, nondistended, normoactive bowel sounds and non-tender Palpation: soft Extremity normal to inspection General Extremety ED: Negative for edema or tenderness General Extremity: Negative for edema Neuro oriented x3, CN's II-XII intact bilaterally and no sensory deficits noted Caio Coma Scale: document GCS findings Spontaneous Obeys Commands Oriented 15 Sensorium / Orientation: awake and alert Motor Exam: strength 5/5 throughout Psych mental status grossly normal MDM MDM MDM Narrative Medical decision making narrative: Patient was given IV fluids, Reglan, and Benadryl. CT scan of the brain was obtained. There is no acute intracranial abnormality. This was interpreted by the radiologist and reviewed by myself. Patient is feeling better on reevaluation. Patient was instructed to rest in a dark quiet room. Patient was instructed to take Tylenol or ibuprofen for pain. Patient was instructed to return if worse in any way. Patient was instructed to follow-up with her primary care physician in 5 to 7 days for reevaluation. Patient understood and was agreeable with the plan. All questions were answered. Radiography Diagnostic Testing: Clinical Impression(s) from Imaging Studies Brain CT 05/22/22 20:03 IMPRESSION: No acute intracranial abnormality. Electronically Signed: Jam Noriega MD at 21:08 EST , Discharge Plan Triage Chief Complaint: Headache ED Provider: José Manuel Lee Dx/Rx/DC Orders Clinical Impression: Headache, Migraine, Obesity Instructions: ED Headache Unspecified Prescriptions: No Action pantoprazole [Protonix] 40 mg tablet,delayed release (DR/EC) 40 mg PO QDAY bupropion HCl [Wellbutrin SR] 100 mg tablet sustained-release 12 hr 100 mg PO DAILY azithromycin 250 mg tablet See Rx Instructions PO .COMPLEX Qty: 6 0RF Rx Instructions: take 500 mg today (day 1), then 250 mg for 4 days (days 2-5) PO sertraline 25 MG tablet 100 mg PO DAILY Label Comments: DEPRESSION budesonide-formoterol 1 INHALER inhaler 2 puff INHALATION BID Label Comments: ASTHMA sumatriptan succinate 100 MG tablet 100 mg PO .X1 PRN Label Comments: MIGRAINE albuterol sulfate 18 GM HFA aerosol inhaler 2 puff IH Q6H PRN PRN (Reason: Sob &/Or Wheezing) Label Comments: Inhale 2 Puffs as instructed every 6 hours as needed for Wheezing/Shortness of Breath. [id number] 1 EACH tablet 1 ea PO DAILY dicyclomine 10 MG capsule 20 mg PO TIDAC Qty: 20 0RF promethazine 25 mg suppository 25 mg MI Q6H PRN (Reason: nausea and vomiting) Qty: 12 0RF promethazine 25 mg tablet 25 mg PO TID PRN (Reason: nausea and vomiting) Qty: 20 0RF sucralfate [Carafate] 100 mg/mL suspension 1 g PO BID PRN (Reason: gerd) Qty: 400 0RF dicyclomine 10 mg capsule 10 mg PO TID PRN (Reason: abdominal cramping) Qty: 20 0RF Primary Care Provider: Liz Fenton Referrals: Liz Fenton MD [Primary Care Provider] - 3-5 Days Disposition Disposition: Home, Self Care
--- NOTE | 2022-05-22 20:03 | CT_ITS ---
EXAMINATION : Head CT w/out contrast HISTORY : Pain COMPARISON : None. TECHNIQUE : Multiple contiguous axial images were obtained from the skull base to the vertex without intravenous contrast. A radiation dose optimization technique was used for this scan. FINDINGS : The ventricles and sulci are normal in size. There is no evidence for acute intracranial hemorrhage, mass effect, or midline shift. There is no extra-axial fluid collection. There is normal huerta-white differentiation, without CT evidence of acute ischemia or infarct. The skull base and calvarium are unremarkable. The orbits are unremarkable. The paranasal sinuses are clear. The mastoid air cells are well-aerated. The soft tissues are unremarkable. CT/Brain/Head without Contrast IMPRESSION: No acute intracranial abnormality. Electronically Signed: Jam Noriega MD at 21:08 EST ,
[2022-05-22] MEDS: DiphenhydrAMINE 50 MG/ML Syringe 25 MG IV (20:12)
[2022-05-22] MEDS: Metoclopramide 10 MG/2 ML Vial IV (20:12)
[2022-05-22] MEDS: 0.9% Normal Saline 1,000 ML 999 ML IV (20:12)
[2022-05-22 20:32] VITALS: RESP 16
[2022-05-22 22:00] VITALS: BP 132/84; PULSE 76; RESP 16
[2022-05-22 22:17] VITALS: RESP 18
== END 2022-05-22 22:32 | disposition home or self-care (01) ==
PROVIDERS: Emergency Provider Emergency Medicine; PCP Internal Medicine; Visit Provider Emergency Medicine
DX: G43.909 Migraine, unspecified, not intractable, without status migrainosus (principal); E66.9 Obesity, unspecified
CPT/HCPCS: 70450; 96361; 96374; 96375; 99282; J7030; A4216

== ENCOUNTER 2022-07-18 14:16 | Emergency (ER) | payer MEDICAID, SELFPAY ==
[2022-07-18 14:17] VITALS: BP 128/95; PULSE 90; RESP 18; TEMP 35.5; O2SAT 95
--- NOTE | 2022-07-18 14:46 | ED.RN ---
pt stated she needs to get her child off the bus and she will come back to be seen tomorrow.
== END 2022-07-18 14:40 | disposition left against medical advice (07) ==
LOC: ED 14:48
PROVIDERS: PCP Internal Medicine
DX: Z53.21 Procedure and treatment not carried out due to patient leaving prior to being seen by health care provider (principal)

== ENCOUNTER 2022-07-19 08:49 | Emergency (ER) | payer MEDICAID, SELFPAY ==
[2022-07-19 08:49] VITALS: BP 120/78; PULSE 74; RESP 18; TEMP 35.7; O2SAT 98; BMI 42.6
--- NOTE | 2022-07-19 09:21 | US_ITS ---
STUDY: ABDOMINAL ULTRASOUND - RIGHT UPPER QUADRANT REASON FOR VISIT: Female, 36 years old . Right upper quadrant pain. TECHNIQUE: Ultrasound evaluation of the right upper quadrant was performed with real-time and static cole-scale imaging. TECHNICAL QUALITY: Adequate. COMPARISON: None. FINDINGS: Liver: The liver is mildly enlarged and measures 18.9 cm. There is increased echogenicity consistent with fatty infiltration. Focal fatty sparing is seen adjacent to the gallbladder fossa. The bile ducts are within normal limits. There is hepatic color flow. The direction of portal flow is hepatopetal. There is no demonstrated mass lesion. Gallbladder: Normal distended gallbladder. The gallbladder wall measures 1.6 mm. There is a negative sonographic Keyes''s sign. There is no pericholecystic fluid. There are no gallstones. Common Bile Duct (C.B.D.): The common bile duct measures 3.3 mm. Pancreas: Normal size of the head, body of the pancreas. The tail portion is obscured due to overlying bowel gas. There is normal echogenicity of the pancreas. There is no demonstrated pancreatic mass or cyst. Right Kidney: Normal size of the right kidney. The right kidney measures 12.2 cm x 6.2 cm x 5.8 cm. Normal renal cortex. The right cortex measures 1.7 cm. There is no demonstrated renal mass or cyst. There is no right hydronephrosis. US/Gallbladder IMPRESSION: Fatty infiltration of the liver. Focal fatty sparing is seen adjacent to the gallbladder fossa. Electronically Signed: Kemal Gutierrez MD at 11:14 EST ,
[2022-07-19 09:44] LABS: Absolute Neutrophil Count 3.2 X10^3/uL (2.0-7.7); Basophil# 0.02 X10^3/uL; Basophil% 0.4 % (0-1); Eosinophil# 0.04 X10^3/uL; Eosinophils% 0.8 % (0-5); Hematocrit 42.7 % (37-47); Lymphocyte % 27.7 % (19-41); Mean Corp Hgb Conc 30.4 g/dL (32-36); Mean Corpuscular Hgb 26.3 pg (27.0-32.0); Mean Corpuscular Volume 86.3 fL (81-99); Mean Platelet Vol. 10.4 fl (6.2-12.0); Monocyte# 0.36 X10^3/uL; Monocyte% 7.1 % (0-10); NRBC Flagged by Analyzer 0 % (0-5); Neutrophil # 3.22 X10^3/uL (2.7-7.7); Neutrophil % 63.6 % (47-70); Platelet Count 198 K/mm3 (150-450); RBC Distribution Width CV 13.7 % (11.6-14.6); Red Blood Count 4.95 M/mm3 (4.2-5.4); White Blood Count 5.1 K/mm3 (4.4-11.0)
[2022-07-19 09:58] LABS: Internal QC Validated? YES +Cl - CLEAR BKGD; Pregnancy, Serum, hCG Quali. NEGATIVE Negative
[2022-07-19] MEDS: Morphine 4 MG/ML Syringe IV (10:00)
[2022-07-19] MEDS: Ondansetron 4 MG/2 ML Vial IV (10:00)
[2022-07-19] MEDS: 0.9% Normal Saline 1,000 ML 1000 ML IV (10:00)
[2022-07-19 10:04] LABS: ALB/GLOB Ratio 0.8 RATIO (0.9-2.4); AST(SGOT) 15 U/L (15-37); Alanine Aminotransfer ALT/SGPT 16 U/L (13-56); Albumin, Serum 3.3 g/dL (3.2-5.0); Alkaline Phosphatase 73 U/L (45-117); Anion Gap 6 (5-15); BUN 6 mg/dL (7-18); Calcium,Total 8.6 mg/dL (8.5-10.1); Chloride 107 mmol/L (98-107); Creatinine, Serum 0.75 mg/dL (0.55-1.02); EST Glomerular Filtration Rate 91 mL/min (>60); Est Glom Filt Rate - Afr Amer 110 mL/min (>60); Estimated Creatinine Clearance 84.13 ml/min; Globulin 3.9 g/dL (2.2-4.2); Glucose 98 mg/dL (74-106); Lipase 85 U/L (73-393); Potassium 3.9 mmol/L (3.5-5.1); Protein, Total 7.2 g/dL (6.4-8.2); Sodium Level 139 mmol/L (136-145)
--- NOTE | 2022-07-19 10:04 | EDS_ITS ---
HPI HPI - GI History of Present Illness Chief Complaint: Abd Pain Informant: patient Abdominal Pain/Flank Pain Onset: Days (3-4) Context: Gradual Onset Timing: Intermittent Quality: Sharp Location: RUQ Worsened by: - (Bending) Relieved by: Nothing Nausea/Vomiting/Emesis GI Symptom: Positive for Nausea; Negative for Vomiting Diarrhea/Melena/Hematochezia GI Symptom: Positive for Diarrhea; Negative for Melena or Hematochezia Associated Symptoms Associated Symptoms: Positive for Frequency; Negative for Dysuria or Hematuria Narrative Narrative: Patient presents with right upper quadrant abdominal pain that has been getting worse over the last 3 to 4 days. Patient states it is intermittent. Patient states it is sharp. Patient states it is over the right upper quadrant. Patient states it is worse whenever she bends. Patient admits to nausea but denies any vomiting. Patient admits to some diarrhea denies any melena or hematochezia. Patient states the pain radiates around to her back. Patient admits to some urinary frequency but denies any dysuria or hematuria. Patient states her last menstrual period was 2 weeks ago. Patient denies any abnormal vaginal bleeding or discharge. PFSH [facility] Medical History Acute bronchitis, unspecified Acute otitis media, left Anxiety Asthma Carpal tunnel syndrome Depression Encounter for screening for COVID-19 GERD (gastroesophageal reflux disease) Lab test negative for COVID-19 virus Migraine Obesity Home Medications sertraline 25 mg tablet 100 mg PO DAILY 03/26/15 [History Last Taken 09/25/16] budesonide-formoterol HFA 160 mcg-4.5 mcg/actuation aerosol inhaler 2 puff inhalation BID 01/20/16 [History Last Taken 09/25/16] sumatriptan succinate 100 mg tablet 100 mg PO .X1 PRN MIGRAINE 09/26/16 [History Last Taken 09/24/16] albuterol sulfate 90 mcg/actuation aerosol inhaler 2 puff IH Q6H PRN PRN Sob &/Or Wheezing 04/03/17 [History Last Taken Unknown] vit 122-ferrous fumarate 27 mg iron-folic acid 800 mcg tablet 1 ea PO DAILY 08/22/17 [History Last Taken Unknown] dicyclomine 10 mg capsule 20 mg PO TIDAC #20 caps 04/24/18 [Rx Last Taken Unknow n] bupropion HCl 100 mg tablet,12 hr sustained-release (Wellbutrin SR) 100 mg PO DAILY 11/26/20 [History Last Taken Unknown] dicyclomine 10 mg capsule 10 mg PO TID PRN abdominal cramping #20 caps 09/24/21 [Rx Last Taken Unknown] promethazine 25 mg rectal suppository 25 mg DC Q6H PRN nausea and vomiting #12 ea 09/24/21 [Rx Last Taken Unknown] promethazine 25 mg tablet 25 mg PO TID PRN nausea and vomiting #20 tabs 09/24/21 [Rx Last Taken Unknown] sucralfate 100 mg/mL oral suspension (Carafate) 1 g (10 mL) PO BID PRN gerd #400 mL 09/24/21 [Rx Last Taken Unknown] azithromycin 250 mg tablet See Rx Instructions PO .COMPLEX #6 tabs 04/07/22 [Rx Last Taken Unknown] pantoprazole 40 mg tablet,delayed release 40 mg PO QDAY #30 tabs 07/19/22 [Rx Last Taken Unknown] Allergy/AdvReac Type Severity Reaction Status Date / Time No Known Allergies Allergy Verified 07/18/22 14:17 Family History Mother Asthma Diabetes Father Cancer throat Brother Hypertension Surgical History History of esophagogastroduodenoscopy (EGD) S/P carpal tunnel release S/P colonoscopy Social History Smoking Status: Never smoker ROS ROS ED Constitutional Constitutional ED: Denies chills or fever(s) Eyes Eyes: Denies blurry vision or change in vision ENT ENT ED: Reports rhinorrhea and sore throat Cardiovascular Cardiovascular: Denies chest pain or palpitations Respiratory/Chest Respiratory/Chest: Reports dyspnea; Denies cough Gastrointestinal Gastrointestinal: Reports abdominal pain and nausea; Denies vomiting Genitourinary Genitourinary ED: Denies dysuria or hematuria Musculoskeletal Musculoskeletal: Reports back pain; Denies neck pain Integumentary Denies abscess or rash Neurologic Neurologic: Denies headache(s) or weakness Allergic/Immunologic Allergic/Immunologic ED: Denies mouth swelling or urticaria EXAM Physical Exam Const Vital Signs: 07/19/22 08:49 07/19/22 14:20 Temperature 96.2 F L Temperature Source Temporal Pulse Rate 74 Respiratory Rate 18 16 Blood Pressure 120/78 114/61 Blood Pressure Mean 92 Pulse Ox 98 98 Oxygen Delivery Method Room Air Positive well nourished, well developed and obese General Appearance ED: well developed and NAD Nutritional Appearance: obese HEENT Reports moist mucous membranes Neck supple and no JVD Resp normal respiratory effort and clear to auscultation bilaterally Cardio regular rate, regular rhythm and no murmurs GI normal to inspection, nondistended, normoactive bowel sounds Palpation: soft and tender RUQ and Keyes's sign; Negative for guarding or rebound tenderness present Extremity normal to inspection General Extremety ED: Negative for edema or tenderness General Extremity: Negative for edema Neuro oriented x3, CN's II-XII intact bilaterally and no sensory deficits noted Sensorium / Orientation: alert Motor Exam: strength 5/5 throughout Psych mental status grossly normal Skin no rashes or lesions noted MDM MDM MDM Narrative Medical decision making narrative: Differential diagnosis includes cholecystitis, cholelithiasis, hepatitis, pancreatitis, gastroenteritis, colitis, pyelonephritis, and urinary tract infection. CBC will be obtained to assess for leukocytosis and anemia. Comprehensive metabolic profile will be obtained to assess for hepatic function, renal function, and electrolyte abnormality. Lipase will be obtained to assess for pancreatitis. Serum hCG will be obtained to assess for . Urinalysis will be obtained to assess for urinary tract infection and hematuria. Right upper quadrant ultrasound will be obtained to assess for cholelithiasis and cholecystitis. Lab Data Lab results narrative: CBC was reviewed and was within normal limits. Serum hCG was reviewed and was negative. Comprehensive metabolic profile was reviewed and was within normal limits. Lipase was reviewed and was normal at 85. Urinalysis was reviewed. There is no evidence of urinary tract infection or hematuria. Labs: Laboratory Results - last 24 hr 07/19/22 07/19/22 07/19/22 09:30 09:30 09:30 WBC 5.1 RBC 4.95 Hgb 13.0 Hct 42.7 MCV 86.3 MCH 26.3 L MCHC 30.4 L RDW Std Deviation 43.0 RDW Coeff of Juanita 13.7 Plt Count 198 MPV 10.4 Immature Gran % (Auto) 0.400 Neut % (Auto) 63.6 Lymph % (Auto) 27.7 Dickenson % (Auto) 7.1 Eos % (Auto) 0.8 Baso % (Auto) 0.4 Absolute Neuts (auto) 3.2 Absolute Lymphs (auto) 1.40 Nucleated RBC % 0 Sodium 139 Potassium 3.9 Chloride 107 Carbon Dioxide 26.0 Anion Gap 6 BUN 6 L Creatinine 0.75 Estim Creat Clear Calc 84.13 Est GFR (MDRD) Af Amer 110 Est GFR (MDRD) Non-Af 91 BUN/Creatinine Ratio 8.0 L Glucose 98 Calcium 8.6 Total Bilirubin 0.50 AST 15 ALT 16 Alkaline Phosphatase 73 Total Protein 7.2 Albumin 3.3 Globulin 3.9 Albumin/Globulin Ratio 0.8 L Lipase 85 Serum , Qual NEGATIVE Urine Color Urine Clarity Urine pH Ur Specific Gabbs Urine Protein Urine Glucose (UA) Urine Ketones Urine Occult Blood Urine Nitrite Urine Bilirubin Urine Urobilinogen Ur Leukocyte Esterase Urine RBC Urine WBC Ur Squamous Epith Cells Urine Bacteria Urine Mucus 07/19/22 11:15 WBC RBC Hgb Hct MCV MCH MCHC RDW Std Deviation RDW Coeff of Juanita Plt Count MPV Immature Gran % (Auto) Neut % (Auto) Lymph % (Auto) Dickenson % (Auto) Eos % (Auto) Baso % (Auto) Absolute Neuts (auto) Absolute Lymphs (auto) Nucleated RBC % Sodium Potassium Chloride Carbon Dioxide Anion Gap BUN Creatinine Estim Creat Clear Calc Est GFR (MDRD) Af Amer Est GFR (MDRD) Non-Af BUN/Creatinine Ratio Glucose Calcium Total Bilirubin AST ALT Alkaline Phosphatase Total Protein Albumin Globulin Albumin/Globulin Ratio Lipase Serum , Qual Urine Color Yellow Urine Clarity Sl. Cloudy Urine pH 8.0 Ur Specific Gabbs 1.015 Urine Protein Negative Urine Glucose (UA) Normal Urine Ketones Negative Urine Occult Blood Negative Urine Nitrite Negative Urine Bilirubin Negative Urine Urobilinogen Normal Ur Leukocyte Esterase 25 H Urine RBC 0 SEEN Urine WBC 0-5 SEEN Ur Squamous Epith Cells 0-5 SEEN Urine Bacteria 0 SEEN Urine Mucus 0 SEEN Radiography Diagnostic Testing: Clinical Impression(s) from Imaging Studies Gallbladder Ultrasound 07/19/22 09:21 IMPRESSION: Fatty infiltration of the liver. Focal fatty sparing is seen adjacent to the gallbladder fossa. Electronically Signed: Kemal Gutierrez MD at 11:14 EST , Right upper quadrant ultrasound was obtained. There is fatty infiltration of the liver. There is no evidence of cholecystitis or cholelithiasis. This was interpreted by the radiologist and was independently reviewed by myself. Treatment and Re-Evaluation Narrative: Patient was given IV fluids, morphine, and Zofran. Patient was advised of her findings. Patient was given a prescription for pantoprazole. Patient was instructed to follow-up with her primary care physician in 5 to 7 days for further evaluation. Patient was advised that she may need to see a christmas tree farmer if her pain is not any better. Patient understood and was agreeable with the plan. All questions were answered. Discharge Plan Triage Chief Complaint: Abd Pain ED Provider: José Manuel Lee Dx/Rx/DC Orders Clinical Impression: Right upper quadrant abdominal pain, Obesity Instructions: ED Abdominal Pain Unkn Cause Fem Prescriptions: Continued pantoprazole 40 mg tablet,delayed release (DR/EC) 40 mg PO QDAY Qty: 30 0RF No Action bupropion HCl [Wellbutrin SR] 100 mg tablet sustained-release 12 hr 100 mg PO DAILY azithromycin 250 mg tablet See Rx Instructions PO .COMPLEX Qty: 6 0RF Rx Instructions: take 500 mg today (day 1), then 250 mg for 4 days (days 2-5) PO sertraline 25 MG tablet 100 mg PO DAILY Label Comments: DEPRESSION budesonide-formoterol 1 INHALER inhaler 2 puff INHALATION BID Label Comments: ASTHMA sumatriptan succinate 100 MG tablet 100 mg PO .X1 PRN Label Comments: MIGRAINE albuterol sulfate 18 GM HFA aerosol inhaler 2 puff IH Q6H PRN PRN (Reason: Sob &/Or Wheezing) Label Comments: Inhale 2 Puffs as instructed every 6 hours as needed for Wheezing/Shortness of Breath. [id number] 1 EACH tablet 1 ea PO DAILY dicyclomine 10 MG capsule 20 mg PO TIDAC Qty: 20 0RF promethazine 25 mg suppository 25 mg DC Q6H PRN (Reason: nausea and vomiting) Qty: 12 0RF promethazine 25 mg tablet 25 mg PO TID PRN (Reason: nausea and vomiting) Qty: 20 0RF sucralfate [Carafate] 100 mg/mL suspension 1 g PO BID PRN (Reason: gerd) Qty: 400 0RF dicyclomine 10 mg capsule 10 mg PO TID PRN (Reason: abdominal cramping) Qty: 20 0RF Primary Care Provider: Liz Fenton Referrals: Liz Fenton MD [Primary Care Provider] - 3-5 Days Disposition Disposition: Home, Self Care Discharge Date/Time: 07/19/22 14:22
[2022-07-19 11:18] LABS: Bacteria 0 SEEN /hpf (None Seen); Mucous, Urine 0 SEEN /hpf (<or=2+); Red Blood Cells-Urine 0 SEEN /hpf (0-5)
[2022-07-19 11:23] LABS: Color, Urine Yellow (Yellow); Glucose, Dipstick Normal (Normal); Ketone-Dipstick Negative (Negative); Leukocyte Esterase-Dipstick 25 /ul (Negative); Nitrite-Dipstick Negative (Negative); Occult Blood-Urine Negative /ul (Negative); Protein-Dipstick Negative (Negative); Specific Gravity, Urine 1.015 (1.002-1.030); Urine Bilirubin Dipstick Negative (Negative); Urine Clarity Sl. Cloudy (Clear); Urine Urobilinogen Normal (Normal)
[2022-07-19 11:30] LABS: Squamous Epithelial Cells - UA 0-5 SEEN /hpf (5-10); White Blood Cells 0-5 SEEN /hpf (0-5)
[2022-07-19 14:20] VITALS: BP 114/61; RESP 16; O2SAT 98
== END 2022-07-19 14:22 | disposition home or self-care (01) ==
PROVIDERS: Emergency Provider Emergency Medicine; PCP Internal Medicine; Visit Provider Emergency Medicine
DX: R10.11 Right upper quadrant pain (principal); R11.0 Nausea; R35.0 Frequency of micturition; E66.9 Obesity, unspecified; R19.7 Diarrhea, unspecified
CPT/HCPCS: 76705; 80053; 81001; 83690; 84703; 85025; 96361; 96374; 96375; 99283; J7030; A4216; J2405

== ENCOUNTER 2023-05-02 13:00 | Outpatient (RCR) | payer MEDICAID, SELFPAY ==
--- NOTE | 2023-03-28 07:05 | HP.OTEVAL_ITS ---
Patient's Visit Information Visit Information Visit Information: ELLIOT GIANG is a 37 year old F, referred to Occupational Therapy by Dr. Jacquie Smith DO, with a diagnosis of CTS. Date of Evaluation: 03/27/23 Occupational Therapist: CLARISSE Willard/Dima, CHT Subjective Subjective: This 37 year old female was seen for OT eval with dx of left CTS. Pt states she had CTR maybe in Jan. unsure when she had sx. pt states she has continued pain/tingling pt states she is currently not working. pt states just home mtg is a problem order was written on 01/26/23 pt did not schedule as it wasn't bothering her- pt states she has most of her problems after mowing the grass with push mower or vacuuming. Pain left hand: Current Pain Intensity: 2 Pain Intensity Range: 0 and 3 ROM Forearm: right/left WNL Wrist: right 60/60 left 60/45 Opposition: Kapanddji opposition scale right 10 left 10 ( DPC) WNL Strength Logging Crew Supervisor: right 70# left 20# Lateral Pinch: right 10# left 10# Tripod Pinch: right 8# left 60# Strength Comments: pt demo decrease in left bi application developer strength Sensation Sensation Comments: scar is hyper sensitive Quick DASH-Disab of Arm,Shoulder& Hand Quick DASH Score: 45.4525 Goals Goal:: pt will demo a increase in left bi application developer strength to 40# or greater to increase pts. ind with ADLs and IADLS by d.c Goal:: pt will demo a increase in left wrist ROM equal to right by d/c to increase pts ind. with ADLs by dc Goal:: pt will report no pain greater than 2/10 with use of left UE with ADL and IADLs by d/c Goal:: pt will demo a reduction in scar sensitivity by demo the ability to tolerate touch/short vibration in 3 weeks. Rehabilitation General Assessment: pt arrives following CTR with scar sensitivity, pain with use and weakness of left bi application developer that limit her ind. with ADLs. pt would benefit from skilled OT services 2x week for 4 weeks to decrease scar sensitivity, increase ROM and strength for pt to return to her PLOF. Today therapist ed. pt on AROM, tendon glides, median nerve glide and scar desensitization. pt demo understanding and agree to POC, Rehabilitation Potential: Good Anticipated Interventions Anticipated Interventions: A/AAROM/PROM, Strengthening, Scar Care, Triggerpoint Release, Desensitization, Modalities, Neuro Reeducation and Education re Diagnosis Visit Plan Frequency: 1-2x /Week Duration: 4 Weeks General Plan: scar desensitization ROM strengthening TEXT: Thank you for the opportunity to evaluate your patient. For Medicare and Medicare HMO plans, please review the plan of care and approve it. It will need to be FAXED BACK to us at [phone] for Medicare purposes. Please let me know if there are questions or concerns regarding this plan of care. Physician Signature: Date:
--- NOTE | 2023-05-02 13:23 | HP.OTDCSUM ---
Discharge Summary D/C Summary: It has been my pleasure to treat ELLIOT GIANG under orders from Dr. Jacquie Smith DO, for the diagnosis of CTS for a total of 8 visit(s). Please see the following information for a summary of their discharge status. Overall Improvement % Improvement: 95 Objective Objective/Function: pt states sore last few days ( more in forearm) pt states she is IND bathing/dressing pt states she is fine with grocery shopping left mat cleaning machine operator strength 50# increase from 20# right mat cleaning machine operator strength 70# left lateral inch 10# left tripod pinch 10# left wrist 60/70 pt states her left hand does get colder faster than her right- ( pt advised to wear gloves) will use heating pad when needed- will use un popped pop corn to desensitize scar- every other day. pt has met OT goals at this time- Therapist ed. pt to return to normal use of left hand- advised strength might take a year to return. Goals Patient Goals: Decrease Pain, Use Hand/Wrist/Arm Normally Again and Be More Independent in ADLS Goal:: pt will demo a increase in left mat cleaning machine operator strength to 40# or greater to increase pts. ind with ADLs and IADLS by d.c ( met goal) Goal:: pt will demo a increase in left wrist ROM equal to right by d/c to increase pts ind. with ADLs by dc (Goal Met) Goal:: pt will report no pain greater than 2/10 with use of left UE with ADL and IADLs by d/c ( Goal Met) Goal:: pt will demo a reduction in scar sensitivity by demo the ability to tolerate touch/short vibration in 3 weeks. ( goal met) Plan Plan: D/C D/C Information Discharge Comments: pt has met OT goals. Pt continues to struggle with random pain that radiates into dorsal forearm pt states she does use heat to make her forearm feel better- pt advised to return to use of left UE with ADLs and IADL's to her tolerance. pt demo understanding and agree with d/c d/c sentence: If there are questions or concerns regarding this patient's occupational therapy, please fell free to call me at [phone]. Thank you for the referral of this patient. Sincerely, Aury Vivar, OTR/L, CHT
== END 2023-05-02 19:00 | disposition home or self-care (01) ==
LOC: OT 13:00
PROVIDERS: PCP Internal Medicine; Referring Provider Orthopaedic Surgery; Visit Provider Orthopaedic Surgery
DX: G56.00 Carpal tunnel syndrome, unspecified upper limb (principal)
CPT/HCPCS: 97035; 97110; 97140; 97166; 97530

== ENCOUNTER 2023-09-22 05:54 | Day surgery (SDC) | payer MEDICAID, SELFPAY ==
[2023-08-23 10:40] LABS: Hematocrit 43.5 % (37-47); Hemoglobin 13.8 g/dL (12.0-15.0); Mean Corp Hgb Conc 31.7 g/dL (32-36); Mean Corpuscular Hgb 26.8 pg (27.0-32.0); Mean Corpuscular Volume 84.5 fL (81-99); Mean Platelet Vol. 9.9 fl (6.2-12.0); Platelet Count 228 K/mm3 (150-450); RBC Distribution Width CV 13.7 % (11.6-14.6); RBC Distribution Width SD 42.6 fl (35.1-43.9); Red Blood Count 5.15 M/mm3 (4.2-5.4); White Blood Count 5.7 K/mm3 (4.4-11.0)
[2023-08-23 11:06] LABS: Anion Gap 5 (5-15); BUN 8 mg/dL (7-18); BUN/Creat Ratio 10.6 RATIO (10-20); Calcium,Total 9.3 mg/dL (8.5-10.1); Chloride 105 mmol/L (98-107); Creatinine, Serum 0.76 mg/dL (0.55-1.02); EST Glomerular Filtration Rate 90 mL/min (>60); Est Glom Filt Rate - Afr Amer 109 mL/min (>60); Glucose 91 mg/dL (74-106); Potassium 3.8 mmol/L (3.5-5.1); Sodium Level 137 mmol/L (136-145)
--- NOTE | 2023-09-11 08:48 | EKG12_ITS ---
Test Reason : PRE OP Blood Pressure : / mmHG Vent. Rate : 082 BPM Atrial Rate : 082 BPM P-R Int : 138 ms QRS Dur : 072 ms QT Int : 366 ms P-R-T Axes : 004 000 006 degrees QTc Int : 427 ms Normal sinus rhythm Normal ECG Confirmed by GIULIANO MONTIEL, EDELMIRA ([id number]), photo editor KASANDRA GAXIOLA ([id number]) on 09/18/2023 1:45:02 PM Referred By: Liz Fenton Confirmed By:IDALMIS NOBLES MD
[2023-09-11 10:20] LABS: AST(SGOT) 19 U/L (15-37); Alanine Aminotransfer ALT/SGPT 20 U/L (13-56); Albumin, Serum 3.5 g/dL (3.2-5.0); Alkaline Phosphatase 75 U/L (45-117); Bilirubin, Direct 0.14 mg/dL (0.00-0.30); Globulin 4.6 g/dL (2.2-4.2); Protein, Total 8.1 g/dL (6.4-8.2)
[2023-09-22] VITALS (11 sets, daily range): BP systolic 120–143; BP diastolic 74–102; PULSE 74–105; RESP 14–18; TEMP 36–36.9; O2SAT 92–100; BMI 42.5
--- NOTE | 2023-09-22 | BR_PTH ---
PATIENT: ELLIOT GIANG [place] [facility] [id number] AGE/SX: 38/F ROOM: RE09/22/[address]: Dr. Jacque Tran MD : [id number] BED: DIS: 09/22/2023 SPEC #: [id number] RECD: 09/22/23 12:56 STATUS: ABRAHAN JOHNSON #: [id number] [place]: 09/22/23 00:[address]: Jacque Tran DEPT: SURGICAL PATHOLOGY RECD BY: Heidi Rae ENTERED: 09/25/23 08:12 SP TYPE: MAMOPLASTY OTHR DR: Dr. Liz Fenton MD Tissues: A - Right breast, NOS B - Left breast, NOS Procedures: Surgery Specimen Level IV HEADER OPERATION: Bilateral breast reduction PRE-OP DIAGNOSIS: Chronic back pain, breast hypertrophy TISSUE SUBMITTED: A- Right breast tissue- 840gm, B- Left breast tissue- 846 gm MICROSCOPIC DIAGNOSIS A. Right breast tissue, breast reduction mammoplasty: Benign breast tissue (840gm). Skin, no pathologic diagnosis. B. Left breast tissue, breast reduction mammoplasty: Benign breast tissue (846gm). Skin, no pathologic diagnosis. TERRELL/ 09/26/23 MICROSCOPIC DESCRIPTION Slides are reviewed. GROSS DESCRIPTION A - Received in fixative is one container labeled with the patient's name and designated right breast tissue. The specimen consists of multiple pieces of fibroadipose tissue with a few of the pieces showing rose-light brown skin measuring in aggregate 30.0 x 24.0 x 7.0 cm (weight in OR 840gm). No skin lesion is identified. Sections reveal yellow adipose cut surfaces mixed with scant fibrous areas. No mass lesion is identified. Systems Spec sections are submitted in six cassettes. Cassette 1 contains the skin piece. B - Received in fixative is one container labeled with the patient's name and designated left breast tissue. The specimen consists of multiple pieces of fibroadipose tissue with a few of the pieces showing rose-light brown skin measuring in aggregate 28.0 x 20.0 x 6.0 cm (weight in OR 846gm). No skin lesion is identified. Sections reveal yellow adipose cut surfaces mixed with scant fibrous areas. No mass lesion is identified. Systems Spec sections are submitted in six cassettes. Cassette 1 contains the skin piece. / TERRELL: 09/25/23 TC:5 CPT: 73146j8
[2023-09-22 06:24] LABS: Internal QC Validated? YES +Cl - CLEAR BKGD; Pregnancy, Urine Negative Negative
[2023-09-22] MEDS: Lactated Ringers 1,000 ML 15 ML IV (06:35)
--- NOTE | 2023-09-22 07:19 | PCM.HP.BLA ---
History and Physical Date of Admission: 09/22/23 The patient is examined. There are no changes to the H&P dated 08/28/23. Informed consent for breast reduction was obtained. Patient marked in the pre-op area. Questions were answered. Assessment & Plan Assessment/Plan (1) Chronic back pain: (2) Breast hypertrophy: PLAN: Plan Pt for bilateral breast reduction.
[2023-09-22] MEDS: Cefazolin 2 GM in 0.9% Normal Saline (100mL Bag) 100 ML IV (07:30)
[2023-09-22] MEDS: EPINEPHrine Nasal 0.1% 30 ML Bottle NASAL (08:04)
[2023-09-22] MEDS: Methylene Blue 1% 100 MG/10 ML VIAL (08:04)
[2023-09-22] MEDS: Gentamicin 80 MG/2 ML Vial (08:04)
[2023-09-22] MEDS: Bupivacaine 0.25% 30 ML Vial (12:44)
--- NOTE | 2023-09-22 13:03 | DCINST_ITS ---
Discharge Instructions Dressing / Incision Additional Dressing/Incision Instructions:: Use the Incentive Spirometer 2- 3x/hour during the day. Follow the instructions given in the office. Keep your back elevated (no lower than recliner position). Follow Up Care Please Follow Up With: Jacque Tran MD When: in 1 week Test Results: Test results from this visit will be discussed in further detail at your follow-up appointment, if applicable. Discharge Plan Admission Attending Provider: Jacque Tran Primary Care Provider: Liz Fenton Discharge Orders/Prescriptions Prescriptions: No Action ondansetron HCl 4 mg tablet 4 mg PO Q8H PRN (Reason: nausea and vomiting) omeprazole 40 mg capsule,delayed release(DR/EC) 40 mg PO DAILY famotidine [Pepcid] 20 mg tablet 20 mg PO DAILY montelukast 10 mg tablet 10 mg PO QHS albuterol sulfate [Proventil HFA] 90 mcg/actuation HFA aerosol inhaler 1 inh inhalation ONCE Excedrin Extra Strength 250-250-65 mg tablet 1 tab PO Q4-6H PRN (Reason: migraine headache) multivitamin with iron [Daily Multiple Vitamins/Iron] Tablet 1 tab PO DAILY bupropion HCl [Wellbutrin XL] 300 mg tablet extended release 24 hr 300 mg PO QAM Myrbetriq 50 mg tablet extended release 24 hr 50 mg PO DAILY Trelegy Ellipta 200-62.5-25 mcg blister with device 1 inh inhalation DAILY cephalexin 500 mg capsule 500 mg PO BID Qty: 14 0RF albuterol sulfate 18 GM HFA aerosol inhaler 2 puff IH Q6H PRN PRN (Reason: Sob &/Or Wheezing) Patient Comments: Inhale 2 Puffs as instructed every 6 hours as needed for Wheezing/Shortness of Breath. sertraline 100 mg tablet 200 mg PO DAILY Other Ambulatory Orders: 12 Lead EKG (Routine) Timeframe: 20230911 Location: None Selected Ordered By: Dr. José Manuel Vidales Referrals / Follow Up: Liz Fenton MD [Primary Care Provider] - Disposition Disposition (needs filled in before D/C Order can be placed): Home, Self Care
--- NOTE | 2023-09-22 13:06 | PCM.OPRPT ---
Problems Associated Problem List Diagnoses (1) Chronic back pain: (2) Breast hypertrophy: Report of Operation Date of Procedure: 09/22/23 Pre-Operative Diagnosis: Bilateral breast hypertrophy; chronic neck and back pain Post-Operative Diagnosis: Same Surgery/Procedure Performed:: Bilateral breast reduction (right?840 g; left?846 g) Surgeon: Jacque Tran sanitation truck driver: FRANK GUTIERREZdoor to door salesman Type of Anesthesia: General Specimen's removed: Bilateral breast tissue Drains: None Estimated Blood Loss (mL): 50 cc Description of Procedure: The patient presents today for bilateral breast reduction due to chronic neck and back pain. The procedure been thoroughly reviewed with the patient. An informed consent is obtained and risks reviewed. The patient is marked in the preop holding area prior to surgery. The patient is brought to the operating room and placed under general anesthesia in the supine position. Care is taken to pad all pressure points, apply sequential compression stockings, Shen catheter, and a warming blanket. The breast and chest are prepped and draped in the usual sterile fashion. We initially began with incising the premarked incisions. Following this, the pedicle is de-epithelialized. Following this, the medial and lateral inferior aspects of the breast are removed using argon coagulation. The pedicle was then from the upper flap and dissection continued cephalad maintaining the upper flap at least 2 cm in thickness. Following this, the pedicle was trimmed in order to allow it to comfortably fit beneath the upper flap. The wound is then irrigated with antibiotic solution and checked for hemostasis which is performed with the argon coagulation. Vicryl sutures are then used to suspend the pedicle medially to allow filling of the medial breast pocket. The breast is then infolded and tacked together with a silk suture and skin clips. When a satisfactory size and shape is noted, would begin definitive closure using a few Vicryl sutures in the inframammary crease. Following this, a strata fix suture is used to approximate the incision in 3 layers. Approximately 5 cm from the inframammary crease, the nipple areola is brought out through an opening and tacked in place with interrupted Prolene suture. Refinement of the closure was then performed with a strata fix suture in a subcuticular fashion. The identical procedure was performed on the opposite side. All tissue removed was weighed prior to submission to pathology. 1/4% plain Marcaine is injected along all the incision lines. Xeroform is placed on the incisions along with fluff gauze and she is placed in a surgery bra. She tolerated the procedure well was taken to the recovery area in an awakening in stable condition. Needle and sponge counts are correct. Complications None Admit VTE Documentation VTE Mechan Device Prophylaxis: SCD's
[2023-09-22] MEDS: Oxycodone/Apap 5/325 Tablet PO (16:39)
== END 2023-09-22 17:15 | disposition home or self-care (01) ==
LOC: SDC 05:55 → AC 05:56
PROVIDERS: Anesthesiology; PCP Internal Medicine; Referring Provider Internal Medicine; Visit Provider Plastic Surgery
PROC: 0H0U0ZZ Alteration of Left Breast, Open Approach (ICD-10-PCS; CPT 19318; principal; 2023-09-22 07:15)
DX: N62 Hypertrophy of breast (principal); N64.81 Ptosis of breast; M54.9 Dorsalgia, unspecified; M54.2 Cervicalgia; G89.29 Other chronic pain; E66.9 Obesity, unspecified; Z79.899 Other long term (current) drug therapy
CPT/HCPCS: 19318; 00402; 36415; 80048; 80076; 81025; 85027; 88305; 93005; J7120; J2405

== ENCOUNTER → 2024-05-28 | Outpatient (CLI) | payer MEDICAID, SELFPAY ==
--- NOTE | 2024-05-28 09:27 | BI_ITS ---
MAMMOGRAPHY - BILATERAL DIAGNOSTIC REASON FOR EXAM: Female, 38 years old. Abnormal screening mammogram. Recent breast reduction surgery. PERTINENT HISTORY: Three-week history of right breast pain/lump. TECHNIQUE: Digital bilateral breast guy (3D mammographic acquisition) in the CC and MLO projections. 2-D mediolateral oblique (MLO) and craniocaudad (CC) views of both breasts were obtained. CAD: Full Field Digital Mammography with Computer Added Detection was performed. COMPARISON: No comparison mammograms available at this time. If any prior films become available, an addendum to this report can be generated. FINDINGS: Breast Composition: The breasts are heterogeneously dense, which may obscure small masses. There are no dominant masses or suspicious calcifications. No other significant abnormalities are identified. BI/DIAG MAMM W/CAD, BILAT IMPRESSION: Negative diagnostic mammogram.. With the patient''s history of a palpable lump in the right breast, sonographic correlation recommended. ASSESSMENT CATEGORY: BIRADS Category 0: Incomplete. Need additional imaging evaluation. A letter regarding these results will be sent to the patient by the facility within 30 days. Approximately 10% of breast cancers are not detected by mammography. A normal mammogram should not delay biopsy of a clinically suspicious abnormality. Electronically Signed: Kemal Gutierrez MD at 11:11 EST ,
--- NOTE | 2024-05-28 09:27 | US_ITS ---
STUDY: ULTRASOUND BREAST - RIGHT REASON FOR EXAM: Female, 38 years old. Right breast lump. Status post bilateral breast reduction surgery. TECHNIQUE: Axial and longitudinal images of the RIGHT breast were performed with a high resolution ultrasound transducer. # OF IMAGES: 19 COMPARISON: Comparison is made with prior mammogram done earlier today. FINDINGS: RIGHT Breast: The inferior aspect of the right breast was examined with ultrasound. This is adjacent to the scar. Small cysts are seen just deep to the incision. The largest measures 5 mm x 4 mm x 3 mm. This also evidence of a small fluid collection at the operative site most likely representing postoperative seroma. There is also evidence of a 4 mm x 5 mm x 3 mm hypoechoic nodule at the 7:00 position of the breast at 12 seconds from the nipple adjacent to the scar. US/Breast Limited Unilateral IMPRESSION: Multiple findings as described. These most likely represent postoperative changes. ASSESSMENT CATEGORY: BIRADS Category 2: Benign. A letter regarding these results will be sent to the patient by the facility within 30 days. Electronically Signed: Kemal Gutierrez MD at 12:10 EST ,
== END | disposition home or self-care (01) ==
LOC: OPBI 09:23
PROVIDERS: PCP Internal Medicine; Referring Provider Obstetrics & Gynecology; Visit Provider Obstetrics & Gynecology
DX: N63.15 Unspecified lump in the right breast, overlapping quadrants (principal); N64.4 Mastodynia
CPT/HCPCS: 77062; 76642; 77066; G0279

== ENCOUNTER 2024-12-20 18:32 | Emergency (ER) | payer MEDICAID, SELFPAY ==
[2024-12-20 18:34] VITALS: BP 164/106; PULSE 95; RESP 16; TEMP 37.3; O2SAT 98; BMI 40.5
[2024-12-20 18:36] VITALS: BP 164/106; PULSE 95; RESP 16; TEMP 37.3; O2SAT 98
--- NOTE | 2024-12-20 19:13 | EX.ED.DYSGE1 ---
HPI History of Present Illness Chief Complaint: Abd Pain Narrative Narrative: Chief complaint and HPI: Abdominal pain and diarrhea. 39-year-old female with past medical history of GERD migraines, depression presents for evaluation of abdominal pain and diarrhea. Patient states since October she has been having diffuse abdominal pain, watery diarrhea, bloating. States that she follows with her primary care physician who performed an H. pylori blood test and told the patient she was positive. She was started on H. pylori medication. Patient states that she felt her symptoms worsened with this so she stopped taking it. She followed up in the office on Monday and was restarted on the medication. She states she did not see her regular provider. She states that the provider called her and told her that the H. pylori stool was negative and that the patient did not have H. pylori. Patient states she did not know what to do with the antibiotics if she continued that. She states she has continued to have symptoms that she went to urgent care. They referred her to the emergency department. She denies any fever, chills, shortness of breath, chest pain, vomiting, dysuria. Review of systems: See HPI Medications: As listed on the chart Allergies: As listed on the chart PFSH: Per chart Vital signs: As listed on the chart. Reviewed. Physical exam: Gen: A&O x3, NAD Head: Normocephalic, atraumatic Eyes: No sclera icterus, conjunctiva clear ENT: Moist mucous membranes Neck: Trachea midline, No JVD CV: RRR, no murmurs, no peripheral edema Resp: Lungs CTA BL, no w/r/c GI: Abd soft, non-distended, mildly tender to palpation diffusely, no r/r/g Musc: Full ROM, no deformity Skin: Warm, dry Neuro: Alert, oriented, grossly intact, sensation intact Psych: Cooperative, appropriate mood and affect [facility] Medical History Wears glasses Alcohol use Syncope History of hiatal hernia History of IBS Non-smoker Shortness of breath on exertion Chronic cough History of echocardiogram Encounter for screening for COVID-19 Lab test negative for COVID-19 virus Acute bronchitis, unspecified Acute otitis media, left Asthma Obesity Carpal tunnel syndrome Anxiety Migraine GERD (gastroesophageal reflux disease) Depression Home Medications ?Medication ?Instructions ?Recorded ?Last Taken ?Type rburmyz-lsryzuofaacsc-pozenevm 250 1 tab PO Q4-6H PRN migraine 08/23/23 Unknown History mg-250 mg-65 mg tablet (Excedrin headache Extra Strength) bupropion HCl 300 mg 24 hr tablet, 300 mg PO QAM 08/23/23 Unknown History extended release (Wellbutrin XL) famotidine 20 mg tablet (Pepcid) 20 mg PO DAILY 08/23/23 Unknown History fluticasone fur. 200 mcg-umeclid 1 inh inhalation DAILY 08/23/23 Unknown History 62.5 mcg-vilant 25 mcg inhalat.powder (Trelegy Ellipta) mirabegron 50 mg tablet,extended 50 mg PO DAILY 08/23/23 Unknown History release 24 hr (Myrbetriq) multivitamin with iron (Daily 1 tab PO DAILY 08/23/23 Unknown History Multiple Vitamins with Iron tablet) omeprazole 40 mg capsule,delayed 40 mg PO DAILY 08/23/23 Unknown History release ondansetron HCl 4 mg tablet 4 mg PO Q8H PRN nausea and vomiting 08/23/23 Unknown History sertraline 100 mg tablet 200 mg PO DAILY 09/08/23 Unknown History silver sulfadiazine 1 % topical 1 applic topical DAILY #20 grams 11/01/23 Unknown Rx cream (Silvadene) nystatin-triamcinolone 100,000 1 applic topical BID #30 grams 11/15/23 Unknown Rx unit/g-0.1 % topical cream bismuth subsalicylate 262 mg 1 tab PO 4X/DAY 12/20/24 Unknown History chewable tablet doxycycline hyclate 100 mg capsule 100 mg PO BID 12/20/24 Unknown History metronidazole 250 mg tablet 250 mg PO 4X/DAY 12/20/24 Unknown History pantoprazole 40 mg tablet,delayed 40 mg PO DAILY 12/20/24 Unknown History release Allergy/AdvReac Type Severity Reaction Status Date / Time No Known Allergies Allergy Verified 12/20/24 18:36 Family History Mother Asthma Diabetes Anxiety Hypertension Arthritis Father Cancer throat Brother Hypertension Anxiety Seizures Asthma Depression Sister Anxiety Asthma Depression Hypertension Seizures Surgical History S/P bilateral breast reduction Hext teeth extracted S/P carpal tunnel release S/P colonoscopy History of esophagogastroduodenoscopy (EGD) Social History (Updated 12/20/24 @ 18:58 by Yuli Neal) housing: alf Smoking Status: Never smoker alcohol intake: never substance use type: does not use additional social history: pt denies vaping, denies marijuana use, denies edibles, denies alcohol, denies aspirin, uses ibuprofen PRN, Uses Excedrin for migraines. EXAM Physical Exam Const Vital Signs: 12/20/24 18:34 12/20/24 18:36 12/20/24 20:33 Temperature 99.1 F 99.1 F Temperature Source Oral Oral Pulse Rate 95 95 77 Respiratory Rate 16 16 18 Blood Pressure 164/106 H 164/106 H 146/111 H Blood Pressure Mean 125 125 122 Pulse Ox 98 98 95 Oxygen Delivery Method Room Air Room Air Room Air MDM MDM MDM Narrative Medical decision making narrative: 39-year-old female with past medical history of GERD migraines, depression presents for evaluation of abdominal pain and diarrhea. Patient states since October she has been having diffuse abdominal pain, watery diarrhea, bloating. States she was diagnosed with H. pylori and placed on medication. Symptoms worsen stop taking medication. Got replaced on the medication. Was told on Monday that her stool was negative for H. pylori and that she does not have this although continued the antibiotics as nobody told her to stop them. Symptoms have persisted. Has not seen GI. Differential diagnosis includes but is not limited to irritable bowel syndrome, PUD, gastritis, colitis, dehydration, MANJU, C. difficile, stool parasite/ova, UTI. NS bolus, morphine, Pepcid, Zofran ordered for symptoms. Abdominal pain workup ordered including CT abdomen pelvis. CBC without leukocytosis or anemia. CMP unremarkable. Lipase unremarkable. Serum negative. UA negative for UTI. Stool cultures/C. difficile not able to be obtained as patient has not had any diarrhea or bowel movement. CT abdomen pelvis shows nondistended fluid-filled small and large bowel loops throughout the abdomen and pelvis, suggesting diffuse enteritis. Given that her symptoms have been ongoing for several weeks and she has been on different antibiotics as well as has no leukocytosis, low suspicion for infectious enteritis. Simple hepatic cyst with no specific follow-up needed. There is an area of abnormal enhancement within the inferior medial right kidney, could represent a focal area of inflammation or infarct or an area where there is hypoenhancement. Recommend correlating with UA. UA shows some protein but negative for blood or infection. Patient needs to follow-up outpatient with your primary care physician for this. Not endorsing any urinary symptoms. Plan will be to discharge home. Follow-up outpatient with PCP and GI. She confirmed understanding of plan. Patient was discharged home. Recommended the PCP should order stool studies Impression: 1. Chronic abdominal pain and diarrhea 2. Diffuse enteritis 3. Area of abnormal enhancement within the inferior medial right kidney, needs further worked up outpatient Lab Data Labs: Laboratory Results - last 24 hr 12/20/24 19:20 WBC 10.6 RBC 4.85 Hgb 13.5 Hct 42.1 MCV 86.8 MCH 27.8 MCHC 32.1 RDW Std Deviation 42.1 RDW Coeff of Juanita 13.3 Plt Count 251 MPV 10.3 Immature Gran % (Auto) 0.500 Neut % (Auto) 75.3 H Lymph % (Auto) 17.6 L Pennington % (Auto) 6.0 Eos % (Auto) 0.3 Baso % (Auto) 0.3 Absolute Neuts (auto) 8.0 H Absolute Lymphs (auto) 1.86 Nucleated RBC % 0 Sodium 137 Potassium 4.0 Chloride 104 Carbon Dioxide 21.4 Anion Gap 12 BUN 13 Creatinine 0.85 Estim Creat Clear Calc 100.36 Est GFR (MDRD) Non-Af 89 BUN/Creatinine Ratio 15.6 Glucose 98 Calcium 8.9 Total Bilirubin < 0.15 AST 17 ALT 12 Alkaline Phosphatase 90 Total Protein 7.3 Albumin 3.9 Globulin 3.3 Albumin/Globulin Ratio 1.2 Lipase 32 Serum , Qual NEGATIVE Urine Color Yellow Urine Clarity Clear Urine pH 6.0 Ur Specific Commerce 1.020 Urine Protein 15 H Urine Glucose (UA) Normal Urine Ketones Negative Urine Occult Blood Negative Urine Nitrite Negative Urine Bilirubin Negative Urine Urobilinogen Normal Ur Leukocyte Esterase 25 H Urine RBC 0 SEEN Urine WBC 0-5 SEEN Ur Squamous Epith Cells 0-5 SEEN Urine Bacteria 0 SEEN Urine Mucus 0 SEEN Radiography Diagnostic Testing: Clinical Impression(s) from Imaging Studies Abdomen/Pelvis CT 12/20/24 20:10 IMPRESSION: No obstructive uropathy, or perinephric inflammation noted. But there is an area of abnormal enhancement within in the inferior medial right kidney. This could represent a focal area of inflammation or infarct or an area where there is hypoenhancement. Please correlate with urinalysis. Nondistended fluid-filled small and large bowel loops throughout the abdomen and pelvis suggesting diffuse enteritis. No free intraperitoneal fluid, air, or suspicious adenopathy, normal appendix visualized Simple hepatic cysts, no specific follow-up needed Reading Location: [facility] Discharge Plan Triage Chief Complaint: Abd Pain ED Provider: Myron Douglas Dx/Rx/DC Orders Prescriptions: No Action ondansetron HCl 4 mg tablet 4 mg PO Q8H PRN (Reason: nausea and vomiting) omeprazole 40 mg capsule,delayed release(DR/EC) 40 mg PO DAILY famotidine [Pepcid] 20 mg tablet 20 mg PO DAILY Excedrin Extra Strength 250-250-65 mg tablet 1 tab PO Q4-6H PRN (Reason: migraine headache) multivitamin with iron [Daily Multiple Vitamins/Iron] Tablet 1 tab PO DAILY bupropion HCl [Wellbutrin XL] 300 mg tablet extended release 24 hr 300 mg PO QAM Myrbetriq 50 mg tablet extended release 24 hr 50 mg PO DAILY Trelegy Ellipta 200-62.5-25 mcg blister with device 1 inh inhalation DAILY silver sulfadiazine [Silvadene] 1 % cream 1 applic topical DAILY Qty: 20 1RF Rx Instructions: apply a 1.5 mm thickness nystatin-triamcinolone 100,000-0.1 unit/g-% cream 1 applic topical BID Qty: 30 1RF sertraline 100 mg tablet 200 mg PO DAILY doxycycline hyclate 100 mg capsule 100 mg PO BID metronidazole 250 mg tablet 250 mg PO 4X/DAY pantoprazole 40 mg tablet,delayed release (DR/EC) 40 mg PO DAILY bismuth subsalicylate 262 mg tablet,chewable 1 tab PO 4X/DAY Primary Care Provider: KEKE CROW Referrals: KEKE CROW [employer] [Primary Care Provider] - Print Language: Cameroonian
[2024-12-20] MEDS: 0.9% Normal Saline (1000mL) 1,000 ML 999 ML IV (19:20)
[2024-12-20 19:26] LABS: Mucous, Urine 0 SEEN /hpf (<or=2+); Red Blood Cells-Urine 0 SEEN /hpf (0-5)
[2024-12-20 19:33] LABS: Color, Urine Yellow (Yellow); Glucose, Dipstick Normal (Normal); Ketone-Dipstick Negative (Negative); Leukocyte Esterase-Dipstick 25 /ul (Negative); Nitrite-Dipstick Negative (Negative); Occult Blood-Urine Negative /ul (Negative); Protein-Dipstick 15 mg/dl (Negative); Specific Gravity, Urine 1.020 (1.002-1.030); Urine Bilirubin Dipstick Negative (Negative)
[2024-12-20 19:39] LABS: Hematocrit 42.1 % (37-47); Hemoglobin 13.5 g/dL (12.0-15.0); Immature Granulocytes Count 0.050 X10^3/uL (0.0-0.0); Mean Corp Hgb Conc 32.1 g/dL (32-36); Mean Corpuscular Volume 86.8 fL (81-99); Mean Platelet Vol. 10.3 fl (6.2-12.0); NRBC Flagged by Analyzer 0 % (0-5); Platelet Count 251 K/mm3 (150-450); RBC Distribution Width CV 13.3 % (11.6-14.6); RBC Distribution Width SD 42.1 fl (35.1-43.9); Red Blood Count 4.85 M/mm3 (4.2-5.4); White Blood Count 10.6 K/mm3 (4.4-11.0)
[2024-12-20] MEDS: Famotidine 200 MG/20 ML MDV 20 MG in 0.9% Normal Saline (Pres. free 8 ML 300 MG IV (19:40)
[2024-12-20 19:55] LABS: Internal QC Validated? YES +Cl - CLEAR BKGD; Pregnancy, Serum, hCG Quali. NEGATIVE Negative; Record Kit Lot#, Serum Preg. 0000962302
--- NOTE | 2024-12-20 20:10 | CT_ITS ---
PROCEDURE: ABDOMEN/PELVIS W IV CONT ONLY 12/20/2024 REASON FOR EXAM: ABDOMINAL PAIN TECHNIQUE: ABDOMEN/PELVIS W IV CONT ONLY Coronal and Sagittal reconstruction series were provided. CONTRAST: Isovue 370 VOLUME: 100 mL One or more dose reduction techniques were used (e.g., Automated exposure control, adjustment of the mA and/or kV according to patient size, use of iterative reconstruction technique. RADIATION DOSE SUMMARY: CTDlvol: 40.30 mGy DLP: 1238.77 mGycm COMPARISON: 2020 FINDINGS: Lung bases: Clear aside from scattered calcified granulomata Liver: Normal size. No suspicious solid mass. There are scattered simple cysts. Gallbladder: Unremarkable Spleen: Normal size. Pancreas: Normal size without evidence of mass surrounding inflammation or ductal dilation. Adrenals: Unremarkable Kidneys: No obstructive uropathy, or perinephric inflammation. There is area of hypo enhancement within the right kidney, this is not really a striated nephrogram but is more a segment of kidney that is nonenhancing. I am unsure of its significance, it was not seen on the previous study but the previous study was not performed with IV contrast. This could represent an area of inflammation or represent an infarct. Please correlate with urinalysis Bladder: Normal Reproductive Organs: Normal uterus, physiologic ovarian cysts, no free fluid in the pelvis Bowel: Nondistended fluid-filled bowel loops in the abdomen suggest diffuse enteritis. No ileus or obstruction. Appendix: Normal appendix seen on coronal recon images 62 through 69. Lymph nodes: No suspicious mesenteric or retroperitoneal lymph nodes Vasculature: Unremarkable Peritoneum / Retroperitoneum: No free air or fluid Bones: Normal CT/Abdomen/Pelvis W IV Cont ONLY IMPRESSION: No obstructive uropathy, or perinephric inflammation noted. But there is an ar ea of abnormal enhancement within in the inferior medial right kidney. This could represent a focal area of inflammation or infa rct or an area where there is hypoenhancement. Please correlate with urinalysis. Nondistended fluid-filled small and large bowel loops throughout the abdomen an d pelvis suggesting diffuse enteritis. No free intraperitoneal fluid, air, or suspicious adenopathy, normal appendix v isualized Simple hepatic cysts, no specific follow-up needed Reading Location: [id number]
[2024-12-20 20:12] LABS: Squamous Epithelial Cells - UA 0-5 SEEN /hpf (5-10)
[2024-12-20 20:30] LABS: AST(SGOT) 17 U/L (<=31); Alanine Aminotransfer ALT/SGPT 12 U/L (<=34); Albumin, Serum 3.9 g/dL (3.5-5.0); Alkaline Phosphatase 90 U/L (35-104); Anion Gap 12 (5-15); BUN 13 mg/dL (4-19); BUN/Creat Ratio 15.6 RATIO (10-20); Calcium,Total 8.9 mg/dL (7.6-11.0); Carbon Dioxide 21.4 mmol/L (21.0-32.0); Chloride 104 mmol/L (98-108); Estimated Creatinine Clearance 100.36 ml/min (50-250); Globulin 3.3 g/dL (2.2-4.2); Glucose 98 mg/dL (70-99); Lipase 32 U/L (13-75); Potassium 4.0 mmol/L (3.3-5.1)
[2024-12-20 20:33] VITALS: BP 146/111; PULSE 77; RESP 18; O2SAT 95
[2024-12-20 22:00] VITALS: BP 140/98; PULSE 71; RESP 18; TEMP 36.8; O2SAT 96
== END 2024-12-20 22:30 | disposition home or self-care (01) ==
PROVIDERS: Emergency Provider Surgery; PCP Nurse Practitioner; Referring Provider Surgery; Visit Provider Surgery
DX: R10.9 Unspecified abdominal pain (principal); K52.9 Noninfective gastroenteritis and colitis, unspecified; R93.5 Abnormal findings on diagnostic imaging of other abdominal regions, including retroperitoneum; G89.29 Other chronic pain; F32.A Depression, unspecified; Z79.899 Other long term (current) drug therapy; K21.9 Gastro-esophageal reflux disease without esophagitis; J45.909 Unspecified asthma, uncomplicated; Z79.51 Long term (current) use of inhaled steroids; F41.9 Anxiety disorder, unspecified
CPT/HCPCS: 74177; 80053; 81001; 83690; 84703; 85025; 96365; 96375; 99283; Q9967; J2405

== ENCOUNTER → 2024-12-26 | Outpatient (CLI) | payer MEDICAID, SELFPAY ==
[2024-12-26 13:19] LABS: AST(SGOT) 16 U/L (<=31); Alanine Aminotransfer ALT/SGPT 12 U/L (<=34); Albumin, Serum 4.1 g/dL (3.5-5.0); Alkaline Phosphatase 89 U/L (35-104); Anion Gap 13 (5-15); BUN 11 mg/dL (4-19); BUN/Creat Ratio 15.6 RATIO (10-20); CRP 10.30 mg/L (0.0-3.0); Calcium,Total 8.9 mg/dL (7.6-11.0); Carbon Dioxide 17.7 mmol/L (21.0-32.0); Chloride 105 mmol/L (98-108); Globulin 3.7 g/dL (2.2-4.2); Glucose 106 mg/dL (70-99); Lipase 27 U/L (13-75); Potassium 4.1 mmol/L (3.3-5.1)
[2024-12-29 02:06] LABS: Calprotectin, Stool 46 ug/g (0-120); Fats, Neutral Normal (.); Fats, Total Normal (.)
[2024-12-30 03:07] LABS: Pancreatic Elastase, Fecal > 800 (>200)
[2024-12-30 22:07] LABS: ANTINUCLEAR ANTIBODIES DIRECT Negative (Negative); Egg, Whole <0.10 kU/L (Class 0); Mussels <0.10 kU/L (Class 0)
== END | disposition home or self-care (01) ==
PROVIDERS: PCP Nurse Practitioner
DX: R10.9 Unspecified abdominal pain (principal); R11.0 Nausea
CPT/HCPCS: 86225; 36415; 80053; 82274; 82653; 82705; 82784; 83516; 83690; 83993; 86003; 86005; 86036; 86038; 86140; 86255; 86671

== ENCOUNTER → 2025-01-02 | Outpatient (CLI) | payer MEDICAID, SELFPAY ==
--- NOTE | 2025-01-02 10:56 | US_ITS ---
PROCEDURE: ABDOMEN LIMITED 01/02/2025 REASON FOR EXAM: ABD PAIN, NAUSEA COMPARISON: July 19, 2022. FINDINGS: Liver: Diffusely echogenic suggesting fatty infiltration. Mild hepatomegaly. The liver measures 18.1 cm. Gallbladder: No stones, sludge, wall thickening or tenderness. Common bile duct: Normal measuring 2.7 mm. . Pancreas: Normal Other: Visualized portions of the right kidney are unremarkable. No right upper quadrant ascites. US/Abdomen Limited IMPRESSION: Mild hepatomegaly. Diffuse fatty infiltration of the liver. Reading Location: [place] [id number]
== END | disposition home or self-care (01) ==
LOC: US 10:55
PROVIDERS: PCP Nurse Practitioner
DX: R10.9 Unspecified abdominal pain (principal); R11.0 Nausea
CPT/HCPCS: 76705

== ENCOUNTER 2025-01-23 08:02 | Day surgery (SDC) | payer MEDICAID, SELFPAY ==
[2025-01-23] VITALS (9 sets, daily range): BP systolic 102–118; BP diastolic 72–82; PULSE 68–76; RESP 14–16; TEMP 36.2–36.8; O2SAT 96–98; BMI 39.6
[2025-01-23] MEDS: Lactated Ringers 1,000 ML 15 ML IV (08:32)
[2025-01-23 08:47] LABS: Internal QC Validated? YES +Cl - CLEAR BKGD; Pregnancy, Urine Negative Negative
[2025-01-23 08:48] LABS: Record Kit Lot#,Urine Preg 0000947241
--- NOTE | 2025-01-23 08:54 | PCM.PRE.AN2 ---
ASA Classification* ASA Classification ASA Classification: 3 Assessment & Plan Anesthesia* Anesthesia Assessment Anesthesia Assessment: Discussed sedation and/or anesthesia options, risks, benefits, and alternatives with patient/parents/legal guardian/POA. Questions invited. The patient/parents/legal guardian/POA seems to understand and agrees to proceed with anesthesia plan. Reviewed the physical assessment, medical history, allergy history and patient home medications list prior to surgery/procedure/anesthetic and documented any changes. Performed airway and anesthesia risk assessments. Anesthesia Type Anesthesia Type: MAC History Source History Obtained from:: Patient and Chart Anesthesia Focused Assessment* Temperature: 97.1 F Pulse Rate: 75 Blood Pressure: 118/72 Respiratory Rate: 16 Pulse Ox: 97 Oxygen Delivery Method: Room Air Airway Assessment Mouth opens: >3 cm Mallampati Score: III Teeth Condition: Caps/Crowns (Patient has a couple crowns. They are tight.) Neck Range of motion (ROM): Limited ROM (Slight Decrease) Labs Anesthesia Preop lab: CBC WBC 10.6 K/mm3 (4.4-11.0) 12/20/24 19:20 12/20/24 RBC 4.85 M/mm3 (4.2-5.4) 12/20/24 19:20 12/20/24 Hgb 13.5 g/dL (12.0-15.0) 12/20/24 19:20 12/20/24 Hct 42.1 % (37-47) 12/20/24 19:20 12/20/24 Plt Count 251 K/mm3 (150-450) 12/20/24 19:20 12/20/24 CHEMISTRY Potassium 4.1 mmol/L (3.3-5.1) 12/26/24 12:12/26/24 Sodium 136 mmol/L (133-145) 12/26/24 12:12/26/24 BUN 11 mg/dL (4-19) 12/26/24 12:12/26/24 Creatinine 0.71 mg/dL (0.70-1.20) 12/26/24 12:12/26/24 Glucose 106 mg/dL (70-99) H 12/26/24 12:12/26/24 TSH 1.10 uIU/mL (0.358-3.74) 09/26/16 11:24 09/26/16 COAG PT 12.7 SECONDS (11.7-14.9) 09/26/16 11:24 09/26/16 Urine Test Negative Negative 01/23/25 08:25 01/23/25 Pre-Assessment Diagnosis/Proposed Procedure Planned Operative Procedure(s): EGD Anesthesia History Anesthesia History - venue coordinator: Anesthesia History - venue coordinator Hx Hospitalization No 01/21/25 13:44 Any Problems With Anesthesia No 01/21/25 13:44 Cholinesterase deficiency No 01/21/25 13:44 You/Your Family Experience No 01/21/25 13:44 fever (hyperthermia) with Relationship Recent Exposure to Contagious No 01/23/25 08:33 Disease Does patient have nerve No 01/21/25 13:44 stimulator Patient instructed to have device shut off --Does patient have Pacemaker No 01/23/25 08:33 or ICD? When Was Last Pacemaker Check QUESTION #4 FULL TEXT: You/Your Family Experience fever (hyperthermia) with Anesthesia Last Oral Intake Last Oral intake: Last Oral Intake NPO since 07:30 01/23/25 08:33 Meds taken in AM with sips of Yes 01/23/25 08:33 water? Meds patient instructed to take am of surgery Any additional information?: Yes NPO since: 07:30 (Patient had a little bit of water with her meds at 7:30 AM.) PONV PONV - venue coordinator: PONV - venue coordinator Female Yes 01/21/25 13:44 HX of Motion Sickness No 01/21/25 13:44 HX of N/V After Surgery No 01/21/25 13:44 Non-Smoker Yes 01/21/25 13:44 Duration of Surgery greater No 01/21/25 13:44 than 60 minutes Number of Risk Factors 2 01/21/25 13:44 PONV Score Moderate Risk 01/21/25 13:44 Height & Weight Height & Weight: Anesthesia: Height & Weight Height 5 ft 3 in 01/23/25 08:33 Weight: 101.7 kg 01/23/25 08:33 Body Mass Index (BMI) 39.6 01/23/25 08:33 Respiratory Assessment Respiratory Assessment - venue coordinator: Respiratory Tract Infection Hx - venue coordinator Hx Respiratory Tract Infection No 01/21/25 13:44 STOP Sleep Apnea STOP Sleep Apnea - venue coordinator: STOP Sleep Apnea - venue coordinator Hx Hypertension No 01/21/25 13:44 Hx Sleep Apnea No 01/21/25 13:44 CPAP BIPAP Do you snore loudly (louder No 01/21/25 13:44 than talking or can be heard Do you often feel tired/ No 01/21/25 13:44 fatigued/ sleepy during daytime? Has anyone observed you stop No 01/21/25 13:44 breathing during sleep? STOP Results Negative 01/21/25 13:44 QUESTION #5 FULL TEXT : Do you snore loudly (louder than talking or can be heard through closed doors)? 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 Specify any problems Hx of Preganancy in last 3 No 01/21/25 13:44 Months Nurse Filling Out Transfusion [email or web address] 01/21/25 13:44 & Questions: Date: 01/21/25 01/21/25 13:44 Time: 13:46 01/21/25 13:44 Patient unable to answer at this time (ie. confused, unrespo /Reproduction History /Reproductive History - venue coordinator: /Reproductive Hx- venue coordinator Hx Now Gestational Age (in weeks): EDC: Hx Hx Para Hx Section SAB No 01/21/25 13:44 Active Medications Active Medications: Current Medications Generic Name Dose Route Start Last Admin Trade Name Freq PRN Reason Stop Dose Admin Lactated Ringer's 1,000 mls @ 15 mls/hr 01/23/25 08:30 01/23/25 08:32 IV 15 mls/hr .Q48H RAMU Administration PFSH Medical History Preop testing Wears glasses Alcohol use Syncope History of hiatal hernia History of IBS Non-smoker Shortness of breath on exertion Chronic cough History of echocardiogram Encounter for screening for COVID-19 Lab test negative for COVID-19 virus Acute bronchitis, unspecified Acute otitis media, left Asthma Obesity Carpal tunnel syndrome Anxiety Migraine GERD (gastroesophageal reflux disease) Depression Home Medications ?Medication ?Instructions ?Recorded ?Last Taken ?Type cwiuhnj-olqrehlszojbr-egmulbqm 250 1 tab PO Q4-6H PRN migraine 08/23/23 Unknown History mg-250 mg-65 mg tablet (Excedrin headache Extra Strength) bupropion HCl 300 mg 24 hr tablet, 300 mg PO QAM 08/23/23 01/23/25 History extended release (Wellbutrin XL) fluticasone fur. 200 mcg-umeclid 1 inh inhalation DAILY 08/23/23 Unknown History 62.5 mcg-vilant 25 mcg inhalat.powder (Trelegy Ellipta) mirabegron 50 mg tablet,extended 50 mg PO DAILY 08/23/23 Unknown History release 24 hr (Myrbetriq) sertraline 100 mg tablet 200 mg PO DAILY 09/08/23 01/23/25 History famotidine 20 mg tablet (Pepcid) 20 mg PO QHS #30 tabs 12/26/24 Unknown Rx ondansetron HCl 4 mg tablet 4 mg PO Q8H PRN nausea and 12/26/24 Unknown Rx vomiting #60 tabs pantoprazole 40 mg tablet,delayed 40 mg PO DAILY #30 tabs 12/26/24 Unknown Rx release albuterol sulfate 2.5 mg/3 mL 2.5 mg continuous nebulization Q6H 01/21/25 Unknown History (0.083 %) solution for nebulization PRN PRN wheezing Allergy/AdvReac Type Severity Reaction Status Date / Time No Known Allergies Allergy Verified 01/21/25 13:41 Family History Mother Asthma Diabetes Anxiety Hypertension Arthritis Father Cancer throat Brother Hypertension Anxiety Seizures Asthma Depression Sister Anxiety Asthma Depression Hypertension Seizures Surgical History S/P bilateral breast reduction [place] teeth extracted S/P carpal tunnel release S/P colonoscopy History of esophagogastroduodenoscopy (EGD) Social History housing: snf Smoking Status: Never smoker alcohol intake: never substance use type: does not use additional social history: pt denies vaping, denies marijuana use, denies edibles, denies alcohol, denies aspirin, uses ibuprofen PRN, Uses Excedrin for migraines. Review of Systems (Anesthesia) ROS Narrative System reviewed and no additional complaints, except as documented. Physical Exam Resp clear to auscultation bilaterally
--- NOTE | 2025-01-23 09:15 | EGD_PTH ---
PATIENT: ELLIOT GIANG LOC: EN U#:[id number] AGE/SX: 39/F ROOM: RE01/23/[address]: Dr. Lb Mattson DO : 1985 BED: DIS: 01/23/2025 SPEC #: [id number] RECD: 01/23/25 10:29 STATUS: ABRAHAN ELIZABETH #: [id number] [place]: 01/23/25 09:[address]: Lb Mattson DEPT: SURGICAL PATHOLOGY RECD BY: Luis Armando Rodriges ENTERED: 01/23/25 14:52 SP TYPE: EGD BIOPSY JAIDEN DR: KEKE CROW, MECHANICAL EXPERT-C Tissues: A - Duodenum, NOS B - Gastric mucous membrane C - Esophagus, NOS Procedures: Immunohistochemical Stains Surgery Specimen Level IV HEADER OPERATION: EGD with biopsy PRE-OP DIAGNOSIS: Nausea, gastro-esophageal reflux disease without esophagitis TISSUE SUBMITTED: A- Duodenum biopsy, B- Gastric body biopsy, C- Distal esophagus biopsy MICROSCOPIC DIAGNOSIS A. Duodenum, biopsy: - Normal villous architecture with Elke gland hyperplasia. - Negative for increased intraepithelial lymphocytes. B. Gastric body, biopsy: - Oxyntic mucosa with chronic inflammation. - IHC negative for H. pylori organisms. C. Distal esophagus, biopsy: - Columnar mucosa negative for goblet cell metaplasia. - Scant benign squamous mucosa. MICROSCOPIC DESCRIPTION Slides are reviewed. All matched controls reacted appropriately. These tests were developed and their performance characteristics determined by [facility]. They may not have been cleared or approved by the U.S. Food and Drug Administration. The FDA has determined that such clearance or approval is not necessary.? The above immunohistochemical?markers and/or special stains have been reviewed by the Pathologist. GROSS DESCRIPTION A. Received in fixative is one container labeled with the patient's name and designated Duodenum biopsy. The specimen consists of two irregular fragments of light rose soft tissue that measure 0.4 and 0.6 cm. The specimen is totally submitted in one cassette. B. Received in fixative is one container labeled with the patient's name and designated Gastric body biopsy. The specimen consists of three irregular fragments of light rose soft tissue that measure 0.3 to 0.8 cm. The specimen is totally submitted in one cassette. C. Received in fixative is one container labeled with the patient's name and designated Distal esophagus biopsy. The specimen consists of two irregular fragments of light rose soft tissue that measure 0.4 and 0.5 cm. The specimen is totally submitted in one cassette. TX 01/23/2025 CPT:99660u4 ,89051
--- NOTE | 2025-01-23 09:29 | HP.PCM_ITS ---
HPI - General General Date of Admission: 01/23/25 Date of Service: 01/23/25 Chief Complaint: Abdominal pain HPI Narrative ELLIOT GIANG, is a 39 F who presents regarding concerns for possible H.pylori. In October her PCP did an H.pylori blood test which was positive; she was started on antibiotic treatment, went on vacation and stopped her medicines, returned home and restarted them, then her symptoms got worse so she stopped meds again. She restarted medicines after a FU with a different provider at her PCP office, was told that she was in fact NEGATIVE H.pylori per stool Ab testing. She was still having symptoms, was encouraged to seek-urgent care, from there she was transferred to ER 8.1.25 with c/o abdominal pain and diarrhea. CBC without leukocytosis or anemia. CMP unremarkable. Lipase unremarkable. Serum negative. UA negative for UTI. Stool cultures/C. difficile not able to be obtained as patient has not had any diarrhea or bowel movement. CT abdomen pelvis shows nondistended fluid-filled small and large bowel loops throughout the abdomen and pelvis, suggesting diffuse enteritis. Given that her symptoms have been ongoing for several weeks and she has been on different antibiotics as well as has no leukocytosis, low suspicion for infectious enteritis. UA shows some protein but negative for blood or infection. She has 1 more day of H.pylori meds, so I'm just finishing them. She is now having daily nausea, upper (RUQ and epigastric) abdominal pain, bloating excess flatus, and very soft to loose foul-smelling stools. She denies hematochezia and melena. She denies emesis. She has been tracking her food and symptom correlation, she denies noting a correlation. She reports the abdominal pain is continuous but worsens significantly 15 to 30 minutes after eating. She denies alleviating factors. She has been needing to sleep in a recliner due to waking with a sour taste or regurgitation in her mouth. She has had a previous EGD with [facility] and esophageal manometry in 2018 but does not remember their results. She is very mindful of the foods she eats as she enjoys working out. [facility] Medical History Preop testing Wears glasses Alcohol use Syncope History of hiatal hernia History of IBS Non-smoker Shortness of breath on exertion Chronic cough History of echocardiogram Encounter for screening for COVID-19 Lab test negative for COVID-19 virus Acute bronchitis, unspecified Acute otitis media, left Asthma Obesity Carpal tunnel syndrome Anxiety Migraine GERD (gastroesophageal reflux disease) Depression Home Medications ?Medication ?Instructions ?Recorded ?Last Taken ?Type cevogqb-npabclhzddjzs-jjubfzqx 250 1 tab PO Q4-6H PRN migraine 08/23/23 Unknown History mg-250 mg-65 mg tablet (Excedrin headache Extra Strength) bupropion HCl 300 mg 24 hr tablet, 300 mg PO QAM 08/2201/23/25 History extended release (Wellbutrin XL) fluticasone fur. 200 mcg-umeclid 1 inh inhalation SARAH Y 08/23/23 Unknown History 62.5 mcg-vilant 25 mcg inhalat.powder (Trelegy Ellipta) mirabegron 50 mg tablet,extended 50 mg PO DAILY Unknown History release 24 hr (Myrbetriq) sertraline 100 mg tablet 200 mg PO DAILY 09/08/2309/13 History famotidine 20 mg tablet (Pepcid) 20 mg PO QHS #30 tabs 12/26/24 Unknown Rx ondansetron HCl 4 mg tablet 4 mg PO Q8H PRN nausea and 12/26/24 Unknown Rx vomiting #60 tabs pantoprazole 40 mg tablet,delayed 40 mg PO DAILY #30 t abs 12/26/24 Unknown Rx release albuterol sulfate 2.5 mg/3 mL 2.5 mg continuous nebuli zation Q6H 01/21/25 Unknown History (0.083 %) solution for nebulization PRN PRN wheezing Allergy/AdvReac Type Severity Reaction Status Date / Time No Known Allergies Allergy Verified 01/21/25 13:41 Family History Mother Asthma Diabetes Anxiety Hypertension Arthritis Father Cancer throat Brother Hypertension Anxiety Seizures Asthma Depression Sister Anxiety Asthma Depression Hypertension Seizures Surgical History S/P bilateral breast reduction [place] teeth extracted S/P carpal tunnel release S/P colonoscopy History of esophagogastroduodenoscopy (EGD) Social History housing: prison Smoking Status: Never smoker alcohol intake: never substance use type: does not use additional social history: pt denies vaping, denies marijuana use, denies edibles, denies alcohol, denies aspirin, uses ibuprofen PRN, Uses Excedrin for migraines. ROS Constitutional Constitutional: Denies fatigue, fever(s), poor appetite, weight gain or weight loss Gastrointestinal Gastrointestinal: Denies belching, bloating, change in bowel habits, change in stool character, chewing difficulty, coffee ground emesis, constipation, cramping, diarrhea, dyspepsia, dysphagia, early satiety, excessive flatus, fecal incontinence, heartburn, hematemesis, hematochezia, hemorrhoids, loose stools, melena, nausea, odynophagia, rectal bleeding, tenesmus, vomiting or weight changes Vital Signs Vital Signs Vital Signs: 01/23/25 08:33 01/23/25 08:33 01/23/25 08:59 Temperature 97.1 F L 97.1 F L Temperature Source Temporal Pulse Rate 75 75 Respiratory Rate 16 16 Respiratory Pattern Normal Blood Pressure 118/72 118/72 Blood Pressure Mean 87 Blood Pressure Source Monitor Blood Pressure Position Semi-Fowlers Blood Pressure Location Left Arm Pulse Ox 97 97 Oxygen Delivery Method Room Air Room Air Weight Weight: 224 lb 3.362 oz Body Mass Index (BMI) 39.6 Physical Exam Const alert, oriented x3, no apparent distress and healthy appearing General Appearance: cooperative GI normal to inspection, nondistended, normoactive bowel sounds, soft to palpation, non-tender and non-distended Percussion: normal to percussion Rectal Exam: deferred Results Lab / Micro Data Labs: Laboratory Results - last 24 hr 01/23/25 08:25: Urine Test Negative Assessment & Plan Assessment/Plan (1) Nausea: (2) Gastro-esophageal reflux disease without esophagitis: PLAN: Assessment and Plan Assessment and Plan (1) Abdominal pain: Status: Acute (2) Nausea: Status: Acute Orders: Orders Calprotectin, Stool Today R10.9 - Unspecified abdominal pain, R11.0 - Nausea Pancreatic Elastase, Fecal Today R10.9 - Unspecified abdominal pain, R11.0 - Nausea Lipase Today R10.9 - Unspecified abdominal pain, R11.0 - Nausea Allergen, Food Profile 14 Today R10.9 - Unspecified abdominal pain, R11.0 - Nausea ISAIAS w/ Reflex Mult Confirm Today R10.9 - Unspecified abdominal pain, R11.0 - Nausea Celiac Disease Profile Today R10.9 - Unspecified abdominal pain, R11.0 - Nausea CRP Today R10.9 - Unspecified abdominal pain, R11.0 - Nausea IBD Expanded Profile Today R10.9 - Unspecified abdominal pain, R11.0 - Nausea Fecal Fat, Qualitative Today R10.9 - Unspecified abdominal pain, R11.0 - Nausea Stool Occult Blood iFOB Today R10.9 - Unspecified abdominal pain, R11.0 - Nausea Comprehensive Metabolic Profil Today R10.9 - Unspecified abdominal pain, R11.0 - Nausea Abdomen Limited Today R10.9 - Unspecified abdominal pain, R11.0 - Nausea Medications: New pantoprazole 40 mg PO DAILY 30 tabs 3RF ondansetron HCl 4 mg PO Q8H PRN 60 tabs 1RF nausea and vomiting Changed From famotidine (Pepcid) 20 mg PO DAILY To famotidine (Pepcid) 20 mg PO QHS 30 tabs 3RF Plan ELLIOT GIANG, is a 39 F who presents to the office today for establishment with [facility] regarding concerns for possible H.pylori and upper abdominal pain. Discussed care plan with her. * blood for IBD, lipase, food allergies * stool for fats, calprotectin, occult * [facility] * schedule EGD CARL for definitive diagnosis of H.pylori * continue pantoprazole 40mg daily 30minutes before eating d/t history of failed symptom control on omeprazole * change famotidine 20mg to PO QHS * ondansetron 4mg PO PRN Q8H nausea/vomiting * office FU 2wks after EGD
--- NOTE | 2025-01-23 09:56 | OP.EGD_ITS ---
Patient Name: Radha Natarajan Procedure Date: 01/23/2025 9:24 AM Date of : 1985 Age: 39 Procedure: Upper GI endoscopy Indications: Epigastric abdominal pain, Functional Dyspepsia Providers: Lb Mattson DO Referring MD: Pippa Zhou Np-maritza Medicines: Monitored Anesthesia Care Patient Profile: This is a 39 year old female. Refer to note in patient chart for documentation of history and physical. Patient has symptoms of chronic abdominal distention and chronic epigastric abdominal pain. Complications: No immediate complications. Procedure: Pre-Anesthesia Assessment: - Prior to the procedure, a History and Physical was performed, and patient medications and allergies were reviewed. The patient is competent. The risks and benefits of the procedure and the sedation options and risks were discussed with the patient. All questions were answered and informed consent was obtained. Patient identification and proposed procedure were verified by the physician in the pre-procedure area. Mental Status Examination: alert and oriented. Airway Examination: normal oropharyngeal airway and neck mobility. Respiratory Examination: clear to auscultation. CV Examination: normal. Prophylactic Antibiotics: The patient does not require prophylactic antibiotics. Prior Anticoagulants: The patient has taken no anticoagulant or antiplatelet agents except for NSAID medication. ASA Grade Assessment: II - A patient with mild systemic disease. After reviewing the risks and benefits, the patient was deemed in satisfactory condition to undergo the procedure. The anesthesia plan was to use monitored anesthesia care (MAC). Immediately prior to administration of medications, the patient was re-assessed for adequacy to receive sedatives. The heart rate, respiratory rate, oxygen saturations, blood pressure, adequacy of pulmonary ventilation, and response to care were monitored throughout the procedure. The physical status of the patient was re-assessed after the procedure. After obtaining informed consent, the endoscope was passed under direct vision. Throughout the procedure, the patient's blood pressure, pulse, and oxygen saturations were monitored continuously. The Endoscope was introduced through the mouth, and advanced to the second part of duodenum. The upper GI endoscopy was accomplished without difficulty. The patient tolerated the procedure well. Scope In: 9:41:17 AM Scope Out: 9:46:37 AM Total Procedure Duration Time 0 hours 5 minutes 20 seconds Findings: The Z-line was irregular and was found 40 cm from the incisors. Biopsies were taken with a cold forceps for histology. Verification of patient identification for the specimen was done. Estimated blood loss was minimal. Patchy mildly erythematous mucosa without bleeding was found in the gastric body. Biopsies were taken with a cold forceps for Helicobacter pylori testing. Verification of patient identification for the specimen was done. Estimated blood loss was minimal. Patchy mildly erythematous mucosa without active bleeding and with no stigmata of bleeding was found in the duodenal bulb. Biopsies were taken with a cold forceps for histology. Impression: - Z-line irregular, 40 cm from the incisors. Biopsied. - Erythematous mucosa in the gastric body. Biopsied. - Erythematous duodenopathy. Biopsied. Recommendation: - Await pathology results. - Continue present medications. Procedure Code(s): --- Professional --- 13834, Esophagogastroduodenoscopy, flexible, transoral; with biopsy, single or multiple CPT copyright 2021 [employer]. All rights reserved. The codes documented in this report are preliminary and upon church history teacher review may be revised to meet current compliance requirements. Lb Mattson DO 01/23/2025 9:56:08 AM This report has been signed electronically. Number of Addenda: 0 Note Initiated On: 01/23/2025 9:24 AM
--- NOTE | 2025-01-23 09:56 | OP.PROVAT_ITS ---
01/23/2025 Sunshine Leone Re : Upper GI endoscopy procedure for Radha Natarajan Gabbier Winnie This procedure was performed on January. My impressions and recommendations are as follows: Impressions : - Z-line irregular, 40 cm from the incisors. Biopsied. - Erythematous mucosa in the gastric body. Biopsied. - Erythematous duodenopathy. Biopsied. Recommendations : - Await pathology results. - Continue present medications. My findings are described in the full procedure note, which is enclosed. If I can be of further assistance, please feel free to contact me at . Sincerely, Lb Mattson, 01/23/2025 9:56:08 AM This report has been signed electronically.
--- NOTE | 2025-01-23 09:57 | PCM.POST.ANE ---
Anesthesia: Postop Eval I Current Vital Signs Temperature: 98 F Pulse Rate: 76 Blood Pressure: 103/75 Respiratory Rate: 14 Pulse Ox: 96 Oxygen Delivery Method: Room Air Assessment Airway patent: Yes Spontaneous unlabored respirations: Yes Mental status: Asleep nausea: No Vomiting: No Anesthesia Complication: No Fluid Hydration Crystalloid volume administer (ml): 300 Total IV fluid infused: 300 Progress Note Anesthesia document: Postop Eval 1 completed: Yes
--- NOTE | 2025-01-23 15:18 | PCM.POSTANE2 ---
Anesthesia Postop Eval I Sum Postop Eval Completion status Anesthesia document: Postop Eval 1 completed: Yes Anesthesia Postop Eval I Summary Anesthesia Postop Eval I Summary: Anesthesia Postop Eval I: Assessment Summary Airway patent Yes 01/23/25 09:58 [email or web address] Spontaneous unlabored Yes 01/23/25 09:58 [email or web address] respirations Mental status Asleep 01/23/25 09:58 [email or web address] nausea No 01/23/25 09:58 [email or web address] Vomiting No 01/23/25 09:58 [email or web address] Anesthesia Postop Eval I: Fluid Summary Crystalloid volume administer 300 01/23/25 09:58 [email or web address] (ml) Colloids volume administered ( ml) Blood Product volume administered (ml) Total IV fluid infused 300 01/23/25 09:58 [email or web address] Anesthesia Postop Eval I: Summary Notes Anesthesia Complication No 01/23/25 09:58 [email or web address] Anesthesia Complication Comment: Post-operative progress note Anesthesia: Postop Eval II Evaluation Mental status: Awake and Calm Pain Level: 0 nausea: No Vomiting: No Complications Anesthesia Complication: No
== END 2025-01-23 10:44 | disposition home or self-care (01) ==
LOC: EN 08:03 → AC 08:05
PROVIDERS: Anesthesiology; PCP Nurse Practitioner; Referring Provider Nurse Practitioner; Visit Provider Internal Medicine Gastroenterology
PROC: 0DJ08ZZ Inspection of Upper Intestinal Tract, Via Natural or Artificial Opening Endoscopic (ICD-10-PCS; CPT 43235; principal; 2025-01-23 09:10)
DX: K29.50 Unspecified chronic gastritis without bleeding (principal); K21.9 Gastro-esophageal reflux disease without esophagitis; Z79.899 Other long term (current) drug therapy
CPT/HCPCS: 43239; 81025; 88305; 88342; J2405

== ENCOUNTER → 2025-02-11 | Outpatient (CLI) | payer MEDICAID, SELFPAY ==
[2025-02-16 02:07] LABS: Calprotectin, Stool 113 ug/g (0-120)
== END | disposition home or self-care (01) ==
LOC: LABSPEC 16:53
PROVIDERS: PCP Nurse Practitioner; Referring Provider Student in an Organized Health Care Education/Training Program; Visit Provider Student in an Organized Health Care Education/Training Program
DX: R19.5 Other fecal abnormalities (principal); K58.9 Irritable bowel syndrome, unspecified
CPT/HCPCS: 83630; 83993; 87177; 87209; 87329; 87493; 87506

== ENCOUNTER 2025-02-28 10:00 | Outpatient (RCR) | payer MEDICAID, SELFPAY ==
--- NOTE | 2025-01-06 15:45 | HP.PTEVAL ---
Patient's Visit Information Visit Information Visit Information: ELLIOT GIANG is a 39 year old F referred to Physical Therapy by Dr. Allyson Gallo MD with a diagnosis of STRESS INCONTINENCE AND URINARY FREQUENCY. Date of Evaluation: 12/13/24 Physical Therapist: Dorina Oliva PT, Cert MDT Visit Plan Frequency: 1x/Week Duration: 2-4 Months Plan: PF THERAPY FOR STRENGTHENING, LENGTHENING/RELAXATION AND ENDURANCE TRAINING. URINARY URGE AND FREQUENCY EDUCATION. HEALTHY BLADDER, BACK AND POSTURE HABIT EDUCATION. TRAINING IN COORDINATION OF PELVIC FLOOR MUSCULATURE WITH HIP AND CORE (TRANSVERSE ABDOMINUS) MUSCULATURE. CORE STRENGTHENING. VENU LE ROM, STRETCHING AND STRENGTHENING. TRAINING IN ABDOMINAL CAVITY PRESSURE MGMT WITH ADL'S. 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 INVOLVES A LOT OF BENDING, LIFTING AND TWISTING. NEXT MONTH WILL INCREASE TO 40 HOURS A WEEK. 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 Disability: NO Present symptoms: FREQUENT URINATION AND URINARY LEAKAGE Present since: YEARS - ABOUT 8 YEARS Pain Scale: N/A Is it getting better, worse or staying the same: WORSE Commenced as a result of: NO APPARENT REASON Worse: COUGHING, SNEEZING, EXERCISES, CHANGE OF POSITION, SEXUAL AROUSAL Better: NOTHING Previous history/Previous treatment: ONE VAGINAL DELIVERY 8.5 YEARS AGO WITHOUT COMPLICATIONS. NO ABDOMINAL PROCEEDURES. NO PELVIC FLOOR TREATMENT. STATES SHE HAD A SPECIALIST CONSULT YEARS AGO BUT DOESN'T REMEMBER MUCH ABOUT IT. Treatment this episode: NONE. Gait: NORMAL How long can you delay the need to urinate: 0-20 MINUTES Prolapse (Falling out feeling): NO Frequency of Urination: ABOUT EVERY 30 MIN Ability to stop urine flow: CAN PARTIALLY DEFLECT Ability to initiate urine stream: YES. NEVER DIFFICULTY INITIATING. Dyspareunia: NO Gait: NORMAL Bowel Incontinence: NO Accidents: NO Unexplained weight loss: NO Imaging: ULTRASOUND ORDERED BUT NOT COMPLETED YET OTHER: 5 PANTY LINERS A DAY. SOMETIMES LARGER ONES FOR WORKOUTS. PMH/Recent major surgery: Asthma Obesity Carpal tunnel syndrome Anxiety Migraine GERD (gastroesophageal reflux disease) Depression Objective Objective: Sitting/Standing Posture: PATIENT STANDS WITH ANTERIOR PELVIC TILT AND HAS INCREASED LORDOSIS. NO RELEVANT LATERAL SHIFT. Active Correction of posture: ABLE TO PARTIALLY CORRECT. Other Observations: INDEP GAIT AND TRANSFERS. Sensory deficit: VENU LE LIGHT TOUCH SENSATION GROSSLY INTACT AND SYMMETRICAL ROM deficit: VENU LE HS, CALF, HIP ADD AND ROTATION TIGHTNESS. Motor deficit: VENU LE'S GROSSLY 5/5. PATIENT VERBALIZES A GOOD UNDERSTANDING OF HOW TO CONTRACT PELVIC FLOOR AND DENIES PAIN WITH TESTING. NO VISUAL COMPENSATIONS SEEN WITH CUEING. PF APPEARS TO FATIGUE AFTER 3 REPS AT 5 SEC EA. HEP INST FOR QUICK FLICK KEGELS 3X8, 3 TIMES A DAY. Dural Signs: NEGATIVE VENU LE'S. Lumbar mvmt loss: flex - NIL ext - MIN R SG - MIN L SG - MIN PATIENT DENIES PAIN WITH LUMBAR ROM TESTING ALL PLANES Core strength: FAIR Pelvic Organ Prolapse Distress Inventory Score: 12 Colorectal-Anal Distress Inventory: 21 Urogenital Distress Inventory Score: 21 Goals Goal 1:: DECREASE URINARY LEAKAGE EPISODES TO ONE OR LESS PER DAY Goal Time Frame: 8-12 Weeks Goal 2:: PATIENT WILL SUCCESSFULLY DELAY VOIDING LONG NEEDED WHEN URGENCY OCCURS TO SUCCESSFULLY MAKE IT TO THE BATHROOM. Goal Time Frame: 6-8 Weeks Goal 3:: PATIENT WILL DEMONSTRATE/COMMUNICATE 10 CONSISTENT AND CONSECUTIVE 10 SECOND PELVIC FLOOR MUSCLE CONTRACTIONS TO DEMONSTRATE IMPROVED PELVIC FLOOR ENDURANCE. Goal Time Frame: 4-6 Weeks Goal 4:: DEVELOP HEALTHY FLUID INTAKE HABITS WITH FLUID INTAKE OF ? BODY WEIGHT IN OUNCES PER DAY AND 2/3 BEING WATER. Goal Time Frame: 4-6 Weeks Goal 5:: NORMALIZE VOIDING FREQUENCEY TO EVERY 3-4 HOURS. Goal Time Frame: 6-8 Weeks Goal 6:: PATIENT WILL BE INDEP WITH A HEP/HOME INSTRUCTIONS FOR CONTINUED IMPROVEMENT ONCE FORMAL PHYSICAL THERAPY CONCLUDES. Goal Time Frame: 8-12 Weeks Rehabilitation Potential Physical Therapy Diagnosis: URINARY STRESS INCONTINENCE, URGE INCONTINENCE, AND INCREASED URINARY FREQUENCY WITH PELVIC FLOOR WEAKNESS. Rehabilitation Potential: Good Anticipated Interventions Patient/Client Instruction: Educate patient on: Condition, Plan of Care and Risk Factors For the Purpose of:: To improve self management Therapeutic Exercise to Include: Strength training, Endurance training, Body mechanics, Postural training, Flexibilty training, Neuromotor development and Relaxation training For the Purpose of:: To improve muscle performance and motor function, To improve ability to perform ADL's, To increase tolerance to activity/condition/position, To improve ability of physical actions for home/community/work/leisure, To increase flexibility/ROM, To improve self management and To improve ability to perform tasks related to life management Text: Thank you for the opportunity to evaluate your patient. For Medicare and Medicare HMO plans, please review the plan of care and approve it. It will need to be FAXED BACK to us at [phone] for Medicare purposes. For Medicare only, by signing this I certify the plan of care. Please let me know if there are questions or concerns regarding this plan of care. Physician Signature: Date:
== END 2025-02-28 19:00 | disposition home or self-care (01) ==
LOC: PT 10:00
PROVIDERS: PCP Internal Medicine; Referring Provider Obstetrics & Gynecology; Visit Provider Obstetrics & Gynecology
DX: N39.3 Stress incontinence (female) (male) (principal); R35.0 Frequency of micturition
CPT/HCPCS: 97162; 97530